=== PATIENT | female | born 1940 | race Caucasian/White ===

== ENCOUNTER 2022-12-07 12:36 | Inpatient (IN) | payer MEDICARE, OTHER, SELFPAY ==
[2022-12-07] VITALS (29 sets, daily range): BP systolic 118–183; BP diastolic 69–106; PULSE 72–101; RESP 14–34; TEMP 36.4–36.6; O2SAT 94–98
--- NOTE | 2022-12-07 12:37 | CTR_ITS ---
PROCEDURE INFORMATION: Exam: CT Head Without Contrast Exam date and time: 12/07/2022 12:37 PM Age: 82 years old Clinical indication: Stroke-like symptoms; Other: Left sided weakness weakness; Additional info: Symptoms of acute stroke TECHNIQUE: Imaging protocol: Computed tomography of the head without contrast. Radiation optimization: All CT scans at this facility use at least one of these dose optimization techniques: automated exposure control; mA and/or kV adjustment per patient size (includes targeted exams where dose is matched to clinical indication); or iterative reconstruction. Other technique: STROKE PROTOCOL was implemented. REPORTING DATA: Count of CT and Cardiac NM exams in prior 12 months: This patient has received 0 known CTs and 0 known cardiac nuclear medicine studies in the 12 months prior to the current study. COMPARISON: No relevant prior studies available. RADIATION DOSE METRICS: Total DLP (mGy-cm): 1008.08 FINDINGS: Brain: Hypodensity posterior portion of right basal ganglia and right insula. Hypodensity right internal capsule and small amount central portion of right MCA territory (series 14, image 44). No mass or hemorrhage. No extra-axial fluid collection. Nonacute lacunar infarct right basal ganglia. Mild bilateral periventricular and subcortical white matter hypodensities are present compatible with small-vessel ischemic disease. Cerebral ventricles: No ventriculomegaly. Paranasal sinuses: Visualized sinuses are unremarkable. No fluid levels. Mastoid air cells: Visualized mastoid air cells are well aerated. Bones/joints: Unremarkable. No acute fracture. Soft tissues: Unremarkable. Vasculature: Dense right middle cerebral artery. Other findings: Mild volume loss. CT/CT head thrombolytic [id number] IMPRESSION: No acute intracranial abnormality. ASSESSMENT: Hypodensity in central portions of right middle cerebral artery territory with dense right middle cerebral artery concerning for acute ischemia. No hemorrhage. ASPECTS ([place] Stroke Program Early CT Score) is 6.
--- NOTE | 2022-12-07 12:37 | CTR_ITS ---
PROCEDURE INFORMATION: Exam: CTA Head With Contrast, Arteriography Exam date and time: 12/07/2022 12:41 PM Age: 82 years old Clinical indication: Patient HX: Left sided weakness; Additional info: CVA TECHNIQUE: Imaging protocol: Computed tomographic angiography of the head with contrast. Exam focused on the arteries. 3D rendering (Not supervised by radiologist): MIP and/or 3D reconstructed images were created by the technologist. Radiation optimization: All CT scans at this facility use at least one of these dose optimization techniques: automated exposure control; mA and/or kV adjustment per patient size (includes targeted exams where dose is matched to clinical indication); or iterative reconstruction. Contrast material: OMNI 350; Contrast volume: 100 ml; Contrast route: INTRAVENOUS (IV); REPORTING DATA: Count of CT and Cardiac NM exams in prior 12 months: This patient has received 0 known CTs and 0 known cardiac nuclear medicine studies in the 12 months prior to the current study. COMPARISON: CT head thrombolytic [id number] 12/07/2022 12:37 PM RADIATION DOSE METRICS: Total DLP (mGy-cm): 433.6 FINDINGS: ANTERIOR CIRCULATION: Right internal carotid artery: No flow is seen in the intracranial portion of the right internal carotid artery. At the ICA bifurcation there is visualization of the right A1, likely filling via the anterior communicating artery, segment but the right middle cerebral artery is not opacified. Distal right MCA branches are seen likely from pial collaterals. Both A2 segments are opacified. Left ICA and MCA are unremarkable. Right middle cerebral artery: See Right internal carotid artery finding. Right anterior cerebral artery: See Right internal carotid artery finding. Left internal carotid artery: See Right internal carotid artery finding. Left middle cerebral artery: No occlusion or significant stenosis. No aneurysm. Left anterior cerebral artery: No occlusion or significant stenosis. No aneurysm. POSTERIOR CIRCULATION: Right vertebral artery: No occlusion or significant stenosis. No aneurysm. Left vertebral artery: No occlusion or significant stenosis. No aneurysm. Basilar artery: Intracranially, both vertebral arteries and basilar artery are unremarkable. No definite right posterior communicating artery is seen. Left posterior communicating artery is patent. Right posterior cerebral artery: No occlusion or significant stenosis. No aneurysm. Left posterior cerebral artery: No occlusion or significant stenosis. No aneurysm. Brain: No definite mass, mass effect, or midline shift. Cerebral ventricles: No ventriculomegaly. Bones/joints: Unremarkable. No acute fracture. Soft tissues: Unremarkable. PROCEDURE INFORMATION: Exam: CTA Neck With Contrast Exam date and time: 12/07/2022 12:41 PM Age: 82 years old Clinical indication: Patient HX: Left sided weakness; Additional info: CVA TECHNIQUE: Imaging protocol: Computed tomographic angiography of the neck with contrast. 3D rendering (Not supervised by radiologist): MIP and/or 3D reconstructed images were created by the technologist. Radiation optimization: All CT scans at this facility use at least one of these dose optimization techniques: automated exposure control; mA and/or kV adjustment per patient size (includes targeted exams where dose is matched to clinical indication); or iterative reconstruction. Contrast material: OMNI 350; Contrast volume: 100 ml; Contrast route: INTRAVENOUS (IV); REPORTING DATA: Count of CT and Cardiac NM exams in prior 12 months: This patient has received 0 known CTs and 0 known cardiac nuclear medicine studies in the 12 months prior to the current study. COMPARISON: CT head thrombolytic [id number] 12/07/2022 12:37 PM RADIATION DOSE METRICS: Total DLP (mGy-cm): 433.6 FINDINGS: Right common carotid artery: No stenosis. No dissection or occlusion. Right internal carotid artery: The right internal carotid artery is occluded at the inferior C2 level. Right external carotid artery: No occlusion or stenosis of the origin. Left common carotid artery: Great vessel origins are unremarkable without significant stenosis. The left common carotid artery arises from the base of the innominate artery. Left internal carotid artery: No stenosis of the extracranial segment. No dissection or occlusion. Left external carotid artery: No occlusion or stenosis of the origin. Right vertebral artery: No stenosis. No dissection or occlusion. Left vertebral artery: No stenosis. No dissection or occlusion. Larynx: Asymmetry vocal cords with slight thickening on the right. Direct visualization is recommended. Thyroid: Multiple nodules in the thyroid gland, recommend nonurgent thyroid ultrasound. Lymph nodes: Mild prominence of lymph nodes in the mediastinum. Soft tissues: Normal. No significant soft tissue swelling. Bones/joints: Diffuse cervical spondylosis with reversal of cervical lordosis. Slight anterolisthesis at C3-C4. Diffuse facet arthropathy. Degenerative disc disease C4-C5, C5-C6, C6-C7. Small central disc protrusion at C7-T1 possibly producing mild canal stenosis. CT/CT angio headneck* [id number] IMPRESSION: No flow is seen in the intracranial portion of the right internal carotid artery. At the ICA bifurcation there is visualization of the right A1, likely filling via the anterior communicating artery, segment but the right middle cerebral artery is not opacified. Distal right MCA branches are seen likely from pial collaterals. Both A2 segments are opacified. Left ICA and MCA are unremarkable. IMPRESSION: 1. 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 2. Multiple nodules in the thyroid gland, recommend nonurgent thyroid ultrasound. 3. Asymmetry vocal cords with slight thickening on the right. Direct visualization is recommended. Findings discussed with Dr. Green at the time of initial brain CT interpretation. COMMENTS: Consistent with the [place] [employer]'s Incidental Findings Committee white paper (J Am Noe Radiol 2015): In patients aged 35 years and older with an incidental thyroid nodule equal to or greater than 1.[address], MRI or extrathyroidal US, further evaluation with dedicated thyroid US is recommended for patients with normal life expectancy and without comorbidities. For smaller nodules without suspicious features, no further evaluation or follow up is recommended. REFERENCES: NASCET CRITERIA. The degree of stenosis in the cervical segment of the internal carotid artery is based on NASCET criteria. Normal is no stenosis. Mild is less than 50% stenosis. Moderate is 50-69% stenosis. Severe is 70% to 99% stenosis. Total occlusion is no detectable patent lumen.
--- NOTE | 2022-12-07 12:37 | XRR_ITS ---
PROCEDURE INFORMATION: Exam: XR Chest Exam date and time: 12/07/2022 12:57 PM Age: 82 years old Clinical indication: Other: Left sided weakness; Additional info: CVA TECHNIQUE: Imaging protocol: Radiologic exam of the chest. Views: 1 view. COMPARISON: CT angio headneck* [id number] 12/07/2022 12:41 PM FINDINGS: Lungs: Minor subsegmental atelectasis in the left base. No infiltrate or edema. Pleural spaces: Unremarkable. No pleural effusion. No pneumothorax. Heart/Mediastinum: Unremarkable. No cardiomegaly. Vasculature: There is a tortuous aorta. Bones/joints: Unremarkable. XR/XR chest 1V portable [id number] IMPRESSION: Minor subsegmental atelectasis in the left base.
--- NOTE | 2022-12-07 12:38 | W.ED.GENADLT ---
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
[2022-12-07 12:44] LABS: Glucose Point of Care 115 mg/dL (70-110)
--- NOTE | 2022-12-07 12:51 | ECG_ITS ---
[facility] Test Date: 2022-12-07 Pat Name: Magaly Álvarez Department: Room: Gender: Female Community Health Nurse Supervisor: : 1940 Requested By: Gretel Green Order Number: [id number] Opal MD: Salas Santamaria M.D. Measurements Intervals [place] Rate: 91 P: 95 ID: [id number] QRS: 18 QRSD: 93 T: 14 QT: 363 QTc: 448 Interpretive Statements SINUS RHYTHM POSSIBLE RIGHT VENTRICULAR CONDUCTION DELAY [RSR (QR) IN V1/V2] NONSPECIFIC ST & T-WAVE ABNORMALITY No previous ECG available for comparison Electronically Signed On 12-07-2022 13:55:22 CDT by Salas Santamaria M.D. [email or web address]
[2022-12-07] MEDS: iohexol 350 mg/mL 500 mL Btl (per mL) IV (12:52)
--- NOTE | 2022-12-07 12:56 | W.ED.NEUROSD ---
HPI - Neuro Symptoms/Deficit General: Chief Complaint: Neuro Symptoms/Deficit Stated Complaint: LEFT FACIAL DROOP Time Seen by Provider: 12/07/22 12:37 Source: EMS Mode of arrival: EMS Limitations: altered mental status History of Present Illness: 82-year-old female who family states I talked her last yesterday at 4 PM per EMS family became concerned with the day here from this morning she usually calls them every morning she does live alone EMS was called they had found her at her home with left-sided paralysis left facial droop along with deviated gaze patient here is only able to mumble words not really answering questions Review of Systems General: Reports: ROS unobtainable due to mental status NIH stroke score NIHSS: Level Of Consciousness - 1a: 0 Level Of Consciousness Questions - 1b: Neither Correct Level Of Consciousness Commands - 1c: Both Correct Best Gaze - 2: Forced Deviation Visual Boateng - 3: No Visual Loss Facial Palsy - 4: Complete Paralysis Motor Arm Right - 5: No Drift Motor Arm Left - 5: No Movement Motor Leg Right - 6: No Drift Motor Leg Left - 6: No Movement Limb Ataxia - 7: Present In One Limb Sensory - 8: Severe To Total Loss Best Language - 9: Severe Aphasia Dysarthia - 10: Severe Dysarthia Extinction And Inattention - 11: 1 Score: Total Score: 23 Physical Exam Const: COMMON NORMALS: negative for patient oriented x3 GENERAL APPEARANCE: ill appearing HENMT: COMMON NORMALS: normocephalic and atraumatic HEAD & SCALP: normocephalic and atraumatic Eye: COMMON NORMALS: Equal, round and reactive pupils present PUPIL: Yes Equal, round and reactive pupils present Neck/C-Spine: COMMON NORMALS: full ROM and supple Chest: COMMONS NORMALS: normal inspection of the chest and normal palpation of entire chest wall Resp: COMMON NORMALS: normal respiratory effort, No retractions, No use of accessory muscles and clear to auscultation bilaterally AUSCULTATION: clear to auscultation bilaterally Cardio: COMMON NORMALS: regular rate, regular rhythm and No murmurs present (Cardio) RATE: regular rate RHYTHM: regular rhythm GI: COMMON NORMALS: Normal to inspection, nondistended, normoactive bowel sounds present, Soft to palpation, non-tender and no masses PALPATION: Yes Soft to palpation Extremity: COMMON NORMALS: normal to inspection and full ROM Neuro: COMMON NORMALS: negative for patient oriented x3 OTHER: Left-sided paralysis along with left-sided neglect Psych: COMMON NORMALS: mental status grossly normal, Normal thought process present and cooperative THOUGHT PROCESS: Normal thought process present Skin: COMMON NORMALS: no rashes or lesions noted and no wounds GENERAL SKIN EXAM: no rashes or lesions noted Course Vital Signs: Vital signs: Vital Signs Temperature 97.6 F 12/07/22 12:56 Pulse Rate 92 12/07/22 12:56 Blood Pressure 137/71 12/07/22 12:56 Pulse Oximetry 97 12/07/22 12:56 Oxygen Delivery Me thod Room Air 12/07/22 12:56 MDM - Neuro Symptoms/Deficit Medical Decision Making Patient presents here after stroke she has internal carotid occlusion likely causing the stroke. I spoke to neurology at [facility] I feel she is out of the window for any retrieval candidate. She is alert tPA window as well spoke to the hospitalist will admit here. Medical Records I reviewed the patient's medical records. Lab Data I reviewed the patient's lab results. 12/07/22 13:18 12/07/22 13:18 Radiology Impressions Chest X-Ray 12/07/22 12:37 IMPRESSION: Minor subsegmental atelectasis in the left base. Head CT 12/07/22 12:37 IMPRESSION: No acute intracranial abnormality. ASSESSMENT: Hypodensity in central portions of right middle cerebral artery territory with dense right middle cerebral artery concerning for acute ischemia. No hemorrhage. ASPECTS ([place] Stroke Program Early CT Score) is 6. ADDENDUM: 12/07/[address] Green on 12/07/2022 1:03 p.m. central standard time. Head/Neck CTA 12/07/22 12:37 IMPRESSION: No flow is seen in the intracranial portion of the right internal carotid artery. At the ICA bifurcation there is visualization of the right A1, likely filling via the anterior communicating artery, segment but the right middle cerebral artery is not opacified. Distal right MCA branches are seen likely from pial collaterals. Both A2 segments are opacified. Left ICA and MCA are unremarkable. IMPRESSION: 1. 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 2. Multiple nodules in the thyroid gland, recommend nonurgent thyroid ultrasound. 3. Asymmetry vocal cords with slight thickening on the right. Direct visualization is recommended. Findings discussed with Dr. Green at the time of initial brain CT interpretation. COMMENTS: Consistent with the [place] [employer]'s Incidental Findings Committee white paper (J Am Noe Radiol 2015): In patients aged 35 years and older with an incidental thyroid nodule equal to or greater than 1.[address], MRI or extrathyroidal US, further evaluation with dedicated thyroid US is recommended for patients with normal life expectancy and without comorbidities. For smaller nodules without suspicious features, no further evaluation or follow up is recommended. REFERENCES: NASCET CRITERIA. The degree of stenosis in the cervical segment of the internal carotid artery is based on NASCET criteria. Normal is no stenosis. Mild is less than 50% stenosis. Moderate is 50-69% stenosis. Severe is 70% to 99% stenosis. Total occlusion is no detectable patent lumen. Laboratory Results WBC 6.81 10^3/uL (3.29-11.43) 12/07/22 13:18 RBC 4.34 10^6/uL (3.85-5.65) 12/07/22 13:18 Hgb 13.10 g/dL (11.27-16.99) 12/07/22 13:18 Hct 39.5 % (36-47) 12/07/22 13:18 MCV 91.0 fl (85-98) 12/07/22 13:18 MCH 30.2 pg (27-33) 12/07/22 13:18 MCHC 33.2 g/dL (30-55) 12/07/22 13:18 RDW 13.3 % (12.1-15.1) 12/07/22 13:18 Plt Count 244 10^3/cmm (157-399) 12/07/22 13:18 MPV 10.7 fL (7.4-10.4) H 12/07/22 13:18 Neut % (Auto) 87.9 % 12/07/22 13:18 Lymph % (Auto) 8.8 % 12/07/22 13:18 Gonzales % (Auto) 2.6 % 12/07/22 13:18 Eos % (Auto) 0.0 % 12/07/22 13:18 Baso % (Auto) 0.3 % 12/07/22 13:18 Neut # (Auto) 5.98 10^3/uL (1.8-7.7) 12/07/22 13:18 Lymph # (Auto) 0.6 10^3/uL (0.8-4.8) L 12/07/22 13:18 Gonzales # (Auto) 0.2 10^3/uL (0.2-0.9) 12/07/22 13:18 Eos # (Auto) 0.0 10^3/uL (0.0-0.8) 12/07/22 13:18 Baso # (Auto) 0.0 10^3/uL (0.0-0.1) 12/07/22 13:18 Nucleated RBC % (auto) 0 % 12/07/22 13:18 Nucleated RBCs # 0.0 /100WBC 12/07/22 13:18 PT 13.80 SECONDS (12.1-14.9) 12/07/22 13:18 INR 1.03 (0.8-1.2) 12/07/22 13:18 APTT 24.1 SECONDS (23.9-36.7) 12/07/22 13:18 Sodium 139 mmol/L (136-145) 12/07/22 13:18 Potassium 3.5 mmol/L (3.5-5.1) 12/07/22 13:18 Chloride 103 mmol/L (98-107) 12/07/22 13:18 Carbon Dioxide 25 mmol/L (22-29) 12/07/22 13:18 Anion Gap 14.5 (5-19) 12/07/22 13:18 BUN 15 mg/dL (8-23) 12/07/22 13:18 Creatinine 0.6 mg/dL (0.5-0.9) 12/07/22 13:18 GFR Calculation Not Reportable 12/07/22 13:18 POC Glucose 115 mg/dL (70-110) H 12/07/22 12:40 Calculated Osmolality 290 mOsm/kg (285-295) 12/07/22 13:18 Calcium 9.7 mg/dL (8.5-10.5) 12/07/22 13:18 Total Bilirubin 0.4 mg/dL (0.15-1.2) 12/07/22 13:18 AST 15 U/L (0-32) 12/07/22 13:18 ALT 10 U/L (0-33) 12/07/22 13:18 Alkaline Phosphatase 45 U/L (35-105) 12/07/22 13:18 Total Protein 6.7 g/dL (6.6-8.7) 12/07/22 13:18 Albumin 4.3 g/dL (3.5-5.2) 12/07/22 13:18 Globulin 2.4 g/dL (1.3-4.6) 12/07/22 13:18 All radiology interpretation(s) finalized by discharge EKG Data EKG 1: I personally reviewed and interpreted this EKG as follows: EKG interpretation date: 12/07/22 EKG interpretation time: 12:51 Interpretation: nsr hr [address] or t wave abnormalities qrs 93 qtc 412 Discharge Plan Discharge Patient Disposition: Admitted As Inpatient Clinical Impression: Cerebrovascular accident Condition: Stable Prescriptions: No Action metoprolol tartrate 50 mg tablet 50 mg PO DAILY hydrochlorothiazide 25 mg tablet 25 mg PO DAILY fenofibrate 160 mg tablet 160 mg PO DAILY Coding Level of Care Code 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
[2022-12-07 13:39] LABS: Basophils % 0.3 %; Hematocrit 39.5 % (36-47); Lymphocytes # 0.6 10^3/uL (0.8-4.8); Lymphocytes % 8.8 %; Mean Corpuscular HGB Conc 33.2 g/dL (30-55); Mean Corpuscular Hemoglobin 30.2 pg (27-33); Mean Platelet Volume 10.7 fL (7.4-10.4); Monocytes # 0.2 10^3/uL (0.2-0.9); Monocytes % 2.6 %; Neutrophils # 5.98 10^3/uL (1.8-7.7); Neutrophils % 87.9 %; Nucleated Red Blood Cells % 0 %; Platelet Count 244 10^3/cmm (157-399); Red Blood Count 4.34 10^6/uL (3.85-5.65); Red Cell Distribution Width 13.3 % (12.1-15.1); White Blood Count 6.81 10^3/uL (3.29-11.43)
[2022-12-07 13:56] LABS: INR 1.03 (0.8-1.2)
[2022-12-07 13:57] LABS: Partial Thromboplastin Time 24.1 SECONDS (23.9-36.7)
--- NOTE | 2022-12-07 14:00 | PM.HP ---
Providers/Chief Complaint Chief Complaint: LEFT FACIAL DROOP History of Present Illness Magaly Álvarez is a 82 year old female with last well-known time 4 PM yesterday, present today with chief complaint of left-sided weakness and gaze preference. She has been diagnosed with major stroke in the ER NIH is around 11 she is not a tPA candidate as per neurologist at [facility]. She has been admitted for PT OT ST evaluation She has significant gaze preference and dysarthria, We can do nursing speech evaluation at bedside Side of bed alarm She is not a good historian Review of Systems General: Reports: ROS unobtainable due to medical condition Medications/Allergies Home Medications Medication Instructions Recorded Confirmed Last Taken Type fenofibrate 160 mg tablet 160 mg PO DAILY 12/07/22 12/07/22 Unknown History hydrochlorothiazide 25 mg tablet 25 mg PO DAILY 12/07/22 12/07/22 Unknown History metoprolol tartrate 50 mg tablet 50 mg PO DAILY 12/07/22 12/07/22 Unknown History Allergies Allergy/AdvReac Type Severity Reaction Status Date / Time meloxicam Allergy Unknown Verified 12/07/22 13:10 Vitals/I&O/Wt Last Vital Signs Temp 97.6 F 12/07/22 12:56 Pulse 92 12/07/22 12:56 BP 137/71 12/07/22 12:56 Pulse Ox 97 12/07/22 12:56 O2 Del Method Room Air 12/07/22 12:56 Weight last 48 hrs Weight 66.224 kg Physical Exam Narrative: Patient has right-sided gaze preference Left-sided neglect Left-sided weakness Left-sided facial droop Able to answer simple questions in yes or no Dysarthria Hypertensive Currently on room air Afebrile No signs meningitis Abdomen soft Looks dehydrated Data 12/07/22 13:18 12/07/22 13:18 A&P Assessment and plan (1) Cerebrovascular accident: Plan Rt Internal carotid artery clot noted Acute CVA PT/OT/ST Permissive hypertension Patient is not diabetic as per the family Check A1c level, Check echo B12 and TSH Thyroid nodules noted on CT scan TSH is low with high free T4 does not have typical thyroid storm symptoms N.p.o. for now Full code Check telemetry for irregular heart rhythm EKG showing sinus rhythm Patient taken from the [facility] Attestations Medical Necessity Statement*: More than 2 midnights anticipated Diagnoses Cerebrovascular accident I63.9
[2022-12-07 14:02] LABS: Alanine Aminotransferase 10 U/L (0-33); Albumin Level 4.3 g/dL (3.5-5.2); Alkaline Phosphatase 45 U/L (35-105); Anion Gap 14.5 (5-19); Aspartate Amino Transferase 15 U/L (0-32); Blood Urea Nitrogen 15 mg/dL (8-23); Calcium 9.7 mg/dL (8.5-10.5); Carbon Dioxide 25 mmol/L (22-29); Chloride 103 mmol/L (98-107); Globulin 2.4 g/dL (1.3-4.6); Glucose 119 mg/dL (65-115); Osmolality Calculated 290 mOsm/kg (285-295); Potassium 3.5 mmol/L (3.5-5.1); Sodium 139 mmol/L (136-145); Total Bilirubin 0.4 mg/dL (0.15-1.2); Total Protein 6.7 g/dL (6.6-8.7)
[2022-12-07 14:25] LABS: D Dimer 1.21 ug/mLFEU (0-0.59)
[2022-12-07] MEDS: aspirin 300 mg Supp PR (14:34)
[2022-12-07] MEDS: sodium chloride 0.9% 1,000 ML 999 ML IV (14:35)
--- NOTE | 2022-12-07 16:28 | USCV_ITS ---
Magaly Álvarez Age: 82 Gender: F : 1940 Exam Date: 12/07/2022 17:34 Ordering Phys: Stephon Marvin MD Technologist: Errol Dorantes Exam Location[place] [facility] [place] Indication: CVA BP: 142 / 106 HR: 95 Rhythm: Sinus Technical Quality: Adequate MEASUREMENTS (Male / Female) Normal Values 2D ECHO LVOT Diameter 2.0 cm LV Ejection Fraction MOD 2C 64.9 % LV Ejection Fraction 2C AL 68.5 % LA Diameter 4.6 cm LA Width 3.7 cm LA Height 5.7 cm RA Width 2.7 cm RA Height 4.0 cm Aorta at Sinotubular Diameter 2.0 cm IVC Diameter 2.0 cm M-MODE Aortic Annulus Diameter 2.6 cm LA Ao Ratio MM 1.9 MV E Point Septal Separation 0.4 cm DOPPLER AV Peak Velocity 146.7 cm/s LVOT Peak Velocity 115.0 cm/s AV Area Cont Eq vti 2.9 cm squared AV Area Cont Eq pk 2.5 cm squared MV Peak Velocity 114.0 cm/s MV Area PHT 15.7 cm squared Mitral E to A Ratio 0.5 MV E' Velocity 26.5 cm/s Mitral E to MV E' Ratio 6.0 Mitral E to LV E' Lateral Ratio 4.1 Mitral E to LV E' Septal Ratio 11.2 TR Peak Velocity 250.8 cm/s TR Peak Gradient 25.2 mmHg TR Mean Velocity 197.5 cm/s TR Mean Gradient 16.7 mmHg TR Velocity Time Integral 65.5 cm Right Atrial Pressure 3.0 mmHg Pulmonary Artery Systolic Pressu 28.2 mmHg PV Peak Velocity 102.0 cm/s RV Acceleration Time 0.1 s RV Ejection Time 0.3 s RV AcT/ET 0.4 FINDINGS Left Ventricle Left ventricle is normal in size. LV systolic function is normal with EF of 55 to 60%. No regional wall motion abnormalities are seen. Grade 1 diastolic dysfunction Right Ventricle Normal in size and function Right Atrium Normal in size Left Atrium Normal in size Mitral Valve Structurally normal mitral valve. Trace mitral regurgitation. Aortic Valve Structurally normal aortic valve. No significant stenosis or regurgitation. Tricuspid Valve Mild tricuspid regurgitation. Pulmonary artery systolic pressure is normal. Pulmonic Valve Not well-visualized Pericardium Normal Aorta Normal in size IVC Appears to be normal CONCLUSIONS LV systolic function is normal with EF of 55 to 60%. Grade 1 diastolic dysfunction. Trace mitral regurgitation Mild tricuspid regurgitation. No comparison studies are available Salas Santamaria MD (Electronically Signed) Final Date: 07 December 2022 20:40 S
[2022-12-07 17:23] LABS: Estmated Average Glucose 114; Hemoglobin A1C 5.6 % (4.0-6.0)
[2022-12-07] MEDS: sodium chloride 0.9% 1,000 ML 75 ML IV (17:25)
[2022-12-07 17:33] LABS: Thyroid Stimulating Hormone 0.01 uIU/mL (0.27-4.20); Vitamin B12 433 pg/mL (232-1245)
[2022-12-07 17:45] LABS: Glucose Point of Care 114 mg/dL (70-110)
[2022-12-07] MEDS: enoxaparin 40 mg/0.4 mL Syringe SUBCUT (17:58)
[2022-12-07 18:17] LABS: Free T4 Free Thyroxine 1.81 ng/dL (0.82-1.77)
[2022-12-07 21:25] LABS: Glucose Point of Care 102 mg/dL (70-110)
[2022-12-08] VITALS (10 sets, daily range): BP systolic 134–154; BP diastolic 62–79; PULSE 64–99; RESP 16–18; TEMP 36.2–37.6; O2SAT 93–99
[2022-12-08 03:32] LABS: Add Urine Microscopic? NO; Charge for UA Resulting for Rev
[2022-12-08 03:39] LABS: Bilirubin Urine Neg (Negative); Blood Urine Neg (Negative); Glucose Urine UA Norm (Normal); Ketones Urine 1+ (Negative); Leukocyte Esterase Urine Negative (Negative); Nitrate Urine Negative (Negative); Protein Urine Neg (Negative); Urine Appearance Clear (CLEAR); Urine Color Yellow (Yellow); Urobilinogen Urine Neg (Negative); pH Urine 5 (5-7)
[2022-12-08 03:48] LABS: Amphetamines Screen Urine Negative (Negative); Barbiturates Screen Urine Negative (Negative); Benzodiazepines Screen Urine Negative (Negative); Cocaine Screen Urine Negative (Negative); Opiate Screen Urine Negative (Negative); PCP Screen Urine Negative (Negative); THC Screen Urine Negative (Negative)
[2022-12-08 05:23] LABS: Magnesium 1.9 mg/dL (1.7-2.3); Phosphorus 2.9 mg/dL (2.5-4.5)
[2022-12-08 06:56] LABS: Glucose Point of Care 99 mg/dL (70-110)
[2022-12-08] MEDS: sodium chloride 0.9% 1,000 ML 75 ML IV ×2 (08:00→21:25)
--- NOTE | 2022-12-08 10:37 | PM.PN ---
Subjective Subjective: Abnormal thyroid level, however no signs of hyperthyroidism Patient is able to understand, not able to express She has not eaten since Thursday A lot is dependent on speech evaluation to decide on prognosis however family is okay with rehab/SNF placement for now patient is stating that she would not opt for feeding tube placement if that is needed Vitals/I&O/Wt Last Vital Signs Temp 98.3 F 12/08/22 07:38 Pulse 87 12/08/22 07:38 Resp 16 12/08/22 07:38 BP 134/62 12/08/22 07:38 Pulse Ox 99 12/08/22 07:38 O2 Del Method Nasal Cannula 12/08/22 08:00 O2 Flow Rate 2 12/07/22 20:53 12/07/22 12/08/22 12/08/22 22:59 06:59 14:59 Intake Total 1000 / 1000 1000 / 2000 Balance 1000 / 1000 1000 / 2000 Weight last 48 hrs Weight 66.224 kg Physical Exam Narrative: Awake and alert Left-sided dense hemiplegia Left-sided facial droop Expressive aphasia Able to comprehend and understand Able to follow commands Family is at the bedside Signs of dehydration present Hemodynamically stable Currently on room air Data 12/07/22 13:18 12/07/22 13:18 A&P Assessment and plan (1) Cerebrovascular accident: (2) Dysphagia: (3) Hemiplegia affecting left nondominant side: (4) Dehydration: (5) Ataxia: Plan Acute CVA Patient will need senior living placement PT OT ST Her prognosis dependent on her speech evaluation If she is not able to eat she does not want 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 diet Full code Echo reviewed B12 normal and A1c level, sinus rhythm low TSH, above normal treat for no sign of hypothyroidism I would not start antithyroid medications for now she does have thyroid nodules Attestations Medical Necessity Statement*: Continue medical management Diagnoses Cerebrovascular accident I63.9 Dysphagia R13.10 Hemiplegia affecting left nondominant side G81.94 Dehydration E86.0 Ataxia R27.0
[2022-12-08 11:21] LABS: Glucose Point of Care 107 mg/dL (70-110)
[2022-12-08 16:28] LABS: Glucose Point of Care 102 mg/dL (70-110)
[2022-12-08] MEDS: enoxaparin 40 mg/0.4 mL Syringe SUBCUT (16:28)
[2022-12-08 22:05] LABS: Glucose Point of Care 109 mg/dL (70-110)
[2022-12-09] VITALS (9 sets, daily range): BP systolic 153–172; BP diastolic 69–82; PULSE 52–92; RESP 16–19; TEMP 36.4–37.5; O2SAT 94–97
[2022-12-09 06:50] LABS: Glucose Point of Care 87 mg/dL (70-110)
[2022-12-09] MEDS: aspirin 81 mg EC Tablet PO (08:27)
[2022-12-09] MEDS: atorvastatin 40 mg Tablet PO (08:27)
[2022-12-09] MEDS: sennosides-docusate Tablet 1 TAB PO (08:27)
[2022-12-09] MEDS: clopidogrel 75 mg Tablet PO (08:27)
--- NOTE | 2022-12-09 10:32 | ECG_ITS ---
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 Measurements Intervals [place] Rate: 74 P: 81 SC: 164 QRS: -8 QRSD: 94 T: -7 QT: 399 QTc: 444 Interpretive Statements SINUS RHYTHM POSSIBLE RIGHT VENTRICULAR CONDUCTION DELAY [RSR (QR) IN V1/V2] MINIMAL ST DEPRESSION [0.025+ mV ST DEPRESSION] Compared to ECG 12/07/2022 12:51:14 ST (T wave) deviation now present T-wave abnormality no longer present Electronically Signed On 12-09-2022 12:55:48 CDT by Toya Maria M.D. [id number]
[2022-12-09] MEDS: sodium chloride 0.9% 1,000 ML 75 ML IV (11:09)
[2022-12-09 11:47] LABS: Glucose Point of Care 96 mg/dL (70-110)
--- NOTE | 2022-12-09 13:50 | PM.PN ---
Subjective Subjective: ON level 5 dyspghaia diet Tele showed bradycardia Vitals/I&O/Wt Last Vital Signs Temp 98.3 F 12/09/22 12:00 Pulse 92 12/09/22 12:00 Resp 16 12/09/22 12:00 BP 172/76 12/09/22 12:00 Pulse Ox 95 12/09/22 12:00 O2 Del Method Room Air 12/09/22 12:00 O2 Flow Rate 2 12/07/22 20:53 12/08/22 12/09/22 12/09/22 22:59 06:59 14:59 Intake Total 1000 / 1000 1000 / 1000 Balance 1000 / 1000 1000 / 1000 Physical Exam Narrative: Pt sleeping family at bedside NO new defecit s1s2 hr in 702 left sided weakness left facial droop Data 12/07/22 13:18 12/07/22 13:18 A&P Assessment and plan (1) Ataxia: (2) Dehydration: (3) Hemiplegia affecting left nondominant side: (4) Dysphagia: (5) Cerebrovascular accident: Plan CVA acute Continue PT/OT and ST Level 5 dysphgia diet Awaiting placement Attestations Medical Necessity Statement*: awaiting placement Diagnoses Ataxia R27.0 Dehydration E86.0 Hemiplegia affecting left nondominant side G81.94 Dysphagia R13.10 Cerebrovascular accident I63.9
[2022-12-09] MEDS: acetaminophen 500 mg Tablet PO (14:44)
[2022-12-09] MEDS: enoxaparin 40 mg/0.4 mL Syringe SUBCUT (16:23)
[2022-12-09 16:26] LABS: Glucose Point of Care 100 mg/dL (70-110)
[2022-12-09 18:32] LABS: SARS Covid-2 Antigen negative (Negative)
[2022-12-09 21:04] LABS: Glucose Point of Care 90 mg/dL (70-110)
[2022-12-10] VITALS: BP 155/85; PULSE 66; RESP 17; TEMP 36.8; O2SAT 98
[2022-12-10] MEDS: sodium chloride 0.9% 1,000 ML 75 ML IV (00:02)
[2022-12-10 03:27] VITALS: BP 164/80; PULSE 69; RESP 18; TEMP 36.9; O2SAT 97
[2022-12-10 03:48] LABS: Glucose Point of Care 100 mg/dL (70-110)
[2022-12-10 06:50] LABS: Glucose Point of Care 91 mg/dL (70-110)
[2022-12-10 07:52] VITALS: BP 149/84; PULSE 87; RESP 16; TEMP 36.5; O2SAT 96
[2022-12-10 08:17] VITALS: PULSE 84; RESP 16; O2SAT 95
[2022-12-10] MEDS: atorvastatin 40 mg Tablet PO (08:40)
[2022-12-10] MEDS: clopidogrel 75 mg Tablet PO (08:40)
[2022-12-10] MEDS: aspirin 81 mg EC Tablet PO (08:40)
[2022-12-10] MEDS: sennosides-docusate Tablet 1 TAB PO (08:40)
[2022-12-10] MEDS: acetaminophen 500 mg Tablet PO (08:40)
--- NOTE | 2022-12-10 10:17 | PM.DCS ---
Discharge Providers Date of Admission: 12/07/22 13:55 Date of Discharge: December 10, 2022 Attending Provider at Admission: Stephon Marvin MD Attending Provider at Discharge: Stephon Marvin MD Diagnoses at Discharge Discharge Diagnosis (1) Ataxia: Status: Acute (2) Dehydration: Status: Acute (3) Hemiplegia affecting left nondominant side: Status: Acute (4) Dysphagia: Status: Acute (5) Cerebrovascular accident: Status: Acute Reason for Visit Reason for Visit: LEFT FACIAL DROOP Hospital Course Hospital Course 82-year-old female who present to the hospital after sustaining acute CVA, she was not a candidate of tPA, she was managed conservatively, she was put on level 5 dysphagia diet, PT OT was requested, she has left-sided facial droop, expressive aphasia, dense left-sided hemiplegia for right internal carotid plaque and right MCA involvement, she will be discharged to [facility], she is using her right hand to eat level 5 dysphagia diet, she remained in sinus rhythm and showed bradycardia during her sleep no symptoms at all, she does not need a pacemaker, echo unremarkable. Hypercoagulable work-up negative, hemoglobin A1c 5.6. Physical Exam Narrative: Left-sided facial droop, left-sided NSTEMI plegia GCS 15 S1, S2 Hemodynamically stable Able to comprehend Discharge Data Studies Completed and Pending Completed Studies During Hospitalization Category Date Time Status CT angio headneck* [id number] Stat Cat Scan 12/07/22 12:[address] head thrombolytic [id number] Stat Cat Scan 12/07/22 12:37 Completed XR chest 1V portable [id number] Stat Exams 12/07/22 12:37 Completed CV. echo complete* [id number] Routine Ultrasound 12/07/22 16:28 Completed Pending at discharge Category Date Time Status PROTEIN C, ACTIVITY Routine Lab 12/08/22 14:27 Received PROTEIN S, ACTIVITY Routine Lab 12/08/22 14:27 Received Radiology Impressions Chest X-Ray 12/07/22 12:37 IMPRESSION: Minor subsegmental atelectasis in the left base. Head CT 12/07/22 12:37 IMPRESSION: No acute intracranial abnormality. ASSESSMENT: Hypodensity in central portions of right middle cerebral artery territory with dense right middle cerebral artery concerning for acute ischemia. No hemorrhage. ASPECTS ([place] Stroke Program Early CT Score) is 6. ADDENDUM: 12/07/[address] Green on 12/07/2022 1:03 p.m. central standard time. Head/Neck CTA 12/07/22 12:37 IMPRESSION: No flow is seen in the intracranial portion of the right internal carotid artery. At the ICA bifurcation there is visualization of the right A1, likely filling via the anterior communicating artery, segment but the right middle cerebral artery is not opacified. Distal right MCA branches are seen likely from pial collaterals. Both A2 segments are opacified. Left ICA and MCA are unremarkable. IMPRESSION: 1. 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 2. Multiple nodules in the thyroid gland, recommend nonurgent thyroid ultrasound. 3. Asymmetry vocal cords with slight thickening on the right. Direct visualization is recommended. Findings discussed with Dr. Green at the time of initial brain CT interpretation. COMMENTS: Consistent with the [place] [employer]'s Incidental Findings Committee white paper (J Am Noe Radiol 2015): In patients aged 35 years and older with an incidental thyroid nodule equal to or greater than 1.[address], MRI or extrathyroidal US, further evaluation with dedicated thyroid US is recommended for patients with normal life expectancy and without comorbidities. For smaller nodules without suspicious features, no further evaluation or follow up is recommended. REFERENCES: NASCET CRITERIA. The degree of stenosis in the cervical segment of the internal carotid artery is based on NASCET criteria. Normal is no stenosis. Mild is less than 50% stenosis. Moderate is 50-69% stenosis. Severe is 70% to 99% stenosis. Total occlusion is no detectable patent lumen. Laboratory Results WBC 6.81 10^3/uL (3.29-11.43) 12/07/22 13:18 RBC 4.34 10^6/uL (3.85-5.65) 12/07/22 13:18 Hgb 13.10 g/dL (11.27-16.99) 12/07/22 13:18 Hct 39.5 % (36-47) 12/07/22 13:18 MCV 91.0 fl (85-98) 12/07/22 13:18 MCH 30.2 pg (27-33) 12/07/22 13:18 MCHC 33.2 g/dL (30-55) 12/07/22 13:18 RDW 13.3 % (12.1-15.1) 12/07/22 13:18 Plt Count 244 10^3/cmm (157-399) 12/07/22 13:18 MPV 10.7 fL (7.4-10.4) H 12/07/22 13:18 Neut % (Auto) 87.9 % 12/07/22 13:18 Lymph % (Auto) 8.8 % 12/07/22 13:18 [place] % (Auto) 2.6 % 12/07/22 13:18 Eos % (Auto) 0.0 % 12/07/22 13:18 Baso % (Auto) 0.3 % 12/07/22 13:18 Neut # (Auto) 5.98 10^3/uL (1.8-7.7) 12/07/22 13:18 Lymph # (Auto) 0.6 10^3/uL (0.8-4.8) L 12/07/22 13:18 [place] # (Auto) 0.2 10^3/uL (0.2-0.9) 12/07/22 13:18 Eos # (Auto) 0.0 10^3/uL (0.0-0.8) 12/07/22 13:18 Baso # (Auto) 0.0 10^3/uL (0.0-0.1) 12/07/22 13:18 Nucleated RBC % (auto) 0 % 12/07/22 13:18 Nucleated RBCs # 0.0 /100WBC 12/07/22 13:18 PT 13.80 SECONDS (12.1-14.9) 12/07/22 13:18 INR 1.03 (0.8-1.2) 12/07/22 13:18 APTT 24.1 SECONDS (23.9-36.7) 12/07/22 13:18 D-Dimer 1.21 ug/mLFEU (0-0.59) H 12/07/22 13:18 Sodium 139 mmol/L (136-145) 12/07/22 13:18 Potassium 3.5 mmol/L (3.5-5.1) 12/07/22 13:18 Chloride 103 mmol/L (98-107) 12/07/22 13:18 Carbon Dioxide 25 mmol/L (22-29) 12/07/22 13:18 Anion Gap 14.5 (5-19) 12/07/22 13:18 BUN 15 mg/dL (8-23) 12/07/22 13:18 Creatinine 0.6 mg/dL (0.5-0.9) 12/07/22 13:18 GFR Calculation Not Reportable 12/07/22 13:18 Glucose 119 mg/dL (65-115) H 12/07/22 13:18 POC Glucose 91 mg/dL (70-110) 12/10/22 06:43 Estimat Average Glucose 114 12/07/22 13:18 Hemoglobin A1c 5.6 % (4.0-6.0) 12/07/22 13:18 Calculated Osmolality 290 mOsm/kg (285-295) 12/07/22 13:18 Calcium 9.7 mg/dL (8.5-10.5) 12/07/22 13:18 Phosphorus 2.9 mg/dL (2.5-4.5) 12/08/22 04:32 Magnesium 1.9 mg/dL (1.7-2.3) 12/08/22 04:32 Total Bilirubin 0.4 mg/dL (0.15-1.2) 12/07/22 13:18 AST 15 U/L (0-32) 12/07/22 13:18 ALT 10 U/L (0-33) 12/07/22 13:18 Alkaline Phosphatase 45 U/L (35-105) 12/07/22 13:18 C-Reactive Protein 6.0 mg/L (0.0-4.9) H 12/08/22 04:32 Total Protein 6.7 g/dL (6.6-8.7) 12/07/22 13:18 Albumin 4.3 g/dL (3.5-5.2) 12/07/22 13:18 Globulin 2.4 g/dL (1.3-4.6) 12/07/22 13:18 Vitamin B12 433 pg/mL (232-1245) 12/07/22 13:18 TSH 0.01 uIU/mL (0.27-4.20) L 12/07/22 13:18 Free T4 1.81 ng/dL (0.82-1.77) H 12/07/22 13:18 Urine Color Yellow (Yellow) 12/08/22 02:45 Urine Appearance Clear (CLEAR) 12/08/22 02:45 Urine pH 5 (5-7) 12/08/22 02:45 Ur Specific [place] 1.020 (1.005-1.030) 12/08/22 02:45 Urine Protein Neg (Negative) 12/08/22 02:45 Urine Glucose (UA) Norm (Normal) 12/08/22 02:45 Urine Ketones 1+ (Negative) H 12/08/22 02:45 Urine Blood Neg (Negative) 12/08/22 02:45 Urine Nitrate Negative (Negative) 12/08/22 02:45 Urine Bilirubin Neg (Negative) 12/08/22 02:45 Urine Urobilinogen Neg mg/dL (Negative) 12/08/22 02:45 Ur Leukocyte Esterase Negative (Negative) 12/08/22 02:45 Urine Opiates Screen Negative ng/mL (Negative) 12/08/22 02:45 Ur Barbiturates Screen Negative ng/mL (Negative) 12/08/22 02:45 Ur Phencyclidine Scrn Negative ng/mL (Negative) 12/08/22 02:45 Ur Amphetamines Screen Negative ng/mL (Negative) 12/08/22 02:45 U Benzodiazepines Scrn Negative ng/mL (Negative) 12/08/22 02:45 Urine Cocaine Screen Negative ng/mL (Negative) 12/08/22 02:45 U Marijuana (THC) Screen Negative ng/mL (Negative) 12/08/22 02:45 SARS-CoV-2 Ag (Rapid) negative (Negative) 12/09/22 17:54 Vitals Last Vital Signs Temp 97.7 F 12/10/22 07:52 Pulse 84 12/10/22 08:17 Resp 16 12/10/22 08:17 BP 149/84 12/10/22 07:52 Pulse Ox 95 12/10/22 08:17 O2 Del Method Room Air 12/10/22 08:17 O2 Flow Rate 2 12/07/22 20:53 Discharge Plan Discharge Patient Disposition: Xfer SNF Condition: Stable Prescriptions: New aspirin 81 mg Tablet,Delayed Release (Dr/Ec) 81 mg PO DAILY Qty: 90 0RF atorvastatin 40 mg Tablet 40 mg PO DAILY Qty: 90 0RF clopidogrel 75 mg Tablet 75 mg PO DAILY Qty: 20 0RF escitalopram oxalate 20 mg tablet 10 mg PO DAILY Qty: 60 0RF lisinopril 10 mg tablet 10 mg PO DAILY Qty: 60 0RF Discontinued metoprolol tartrate 50 mg tablet 50 mg PO DAILY hydrochlorothiazide 25 mg tablet 25 mg PO DAILY fenofibrate 160 mg tablet 160 mg PO DAILY Discharge Orders: Discharge Order (Routine); Ordered 12/10/22 Ordered By: Stephon Marvin Referrals: [facility] [Outside] Patient Instructions: Opioid Safety Discharge Attestations Time Spent in Discharge Care*: greater than 30 min Quality Metrics Clinical Quality Measures [ No reported AMI, CVA or VTE this stay] Coding Level of Care Code Acute Code for Chg Fwd Diagnoses Ataxia R27.0 Dehydration E86.0 Hemiplegia affecting left nondominant side G81.94 Dysphagia R13.10 Cerebrovascular accident I63.9
[2022-12-10 11:10] LABS: Glucose Point of Care 119 mg/dL (70-110)
[2022-12-10 11:26] VITALS: BP 163/76; PULSE 78; RESP 16; TEMP 36.4; O2SAT 93
--- NOTE | 2022-12-10 11:31 | PC.SOCIAL ---
Pg 2 IMM Explained to pt's family Pg 2 IMM. No questions voiced. Provided pt a copy. Initialed, dated, & timed a copy & placed in chart.
[2022-12-10 12:52] VITALS: BP 163/76; PULSE 78; RESP 16; TEMP 36.4; O2SAT 93
--- NOTE | 2022-12-10 12:53 | PC.NURSE ---
Discharge Note Patient discharged to [facility] via ambulance accompanied by Ambulance personnelle. 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 Mobile pharmacy medications and/or prescriptions provided. Belongings/home medications returned.
[2022-12-11 05:18] LABS: PROTEIN C, ACTIVITY 123 % normal (70-180)
[2022-12-11 20:50] LABS: PROTEIN S, ACTIVITY 81 % normal (60-140)
== END 2022-12-10 12:54 | disposition skilled nursing facility (03) | DRG 65 ==
LOC: ER 14:16 → MEDSURG 14:31
PROVIDERS: Admitting Provider Internal Medicine; Emergency Provider Emergency Medicine; Visit Provider Internal Medicine
DX: I63.231 Cerebral infarction due to unspecified occlusion or stenosis of right carotid arteries (principal); G81.94 Hemiplegia, unspecified affecting left nondominant side; R13.10 Dysphagia, unspecified; R29.810 Facial weakness; R47.01 Aphasia; R29.723 NIHSS score 23; E86.0 Dehydration; I10 Essential (primary) hypertension
CPT/HCPCS: 36415; 36416; 51702; 70450; 70496; 70498; 71045; 80053; 80306; 81003; 82607; 82962; 83036; 83735; 84100; 84439; 84443; 85025; 85303; 85306; 85378; 85610; 85730; 86140; 87426; 92507; 92523; 92526; 92610; 93005; 93306; 96372; 96374; 97110; 97161; 97167; 97530; 97535; 99291; J1650; J7030; Q9967

== ENCOUNTER 2022-12-21 19:37 | Inpatient (IN) | payer MEDICARE, OTHER, SELFPAY ==
[2022-12-21] VITALS (7 sets, daily range): BP systolic 63–95; BP diastolic 42–66; PULSE 126–186; RESP 17–34; TEMP 36.9; O2SAT 92–97; BMI 25.0
--- NOTE | 2022-12-21 19:47 | XRR_ITS ---
PROCEDURE INFORMATION: Exam: XR Chest Exam date and time: 12/21/2022 9:03 PM Age: 82 years old Clinical indication: Other: Tachycardia; Hypotensive; Additional info: Weakness TECHNIQUE: Imaging protocol: Radiologic exam of the chest. Views: 1 view. COMPARISON: CR (CHEST, ) 12/07/2022 12:57 PM FINDINGS: Lungs: No definite consolidation. Pleural spaces: Unremarkable. No pleural effusion. No pneumothorax. Heart/Mediastinum: Suboptimal positioning makes evaluation of the heart and lungs difficult. There is a rotational component on this frontal view of the chest. Vasculature: There is calcified plaque in the aortic arch. Bones/joints: There degenerative changes across the glenohumeral joints, right greater than left. XR/XR chest 1V portable [id number] IMPRESSION: Suboptimal positioning. No definite acute cardiopulmonary pathology.
--- NOTE | 2022-12-21 19:47 | CTR_ITS ---
PROCEDURE INFORMATION: Exam: CT Head Without Contrast Exam date and time: 12/21/2022 8:59 PM Age: 82 years old Clinical indication: Altered mental status/memory loss; Patient HX: From [facility]. Patient tachycardic up to 200 bpm with hypotension. History of CVA. ; Additional info: Weakness TECHNIQUE: Imaging protocol: Computed tomography of the head without contrast. Radiation optimization: All CT scans at this facility use at least one of these dose optimization techniques: automated exposure control; mA and/or kV adjustment per patient size (includes targeted exams where dose is matched to clinical indication); or iterative reconstruction. REPORTING DATA: Count of CT and Cardiac NM exams in prior 12 months: This patient has received 2 known CTs and 0 known cardiac nuclear medicine studies in the 12 months prior to the current study. COMPARISON: CT head thrombolytic [id number] 12/07/2022 12:37 PM RADIATION DOSE METRICS: Total DLP (mGy-cm): 1167.48 FINDINGS: Brain: Subacute appearing right MCA distribution infarct. This was seen in its acute phase on the prior CT scan from 12/07/2022. There is diffuse cerebral atrophy present, consistent with this patient's age. Periventricular and subcortical white matter low densities are present which at this age likely represent microvascular ischemic change. No evidence for acute intracranial hemorrhage. Cerebral ventricles: No ventriculomegaly. Paranasal sinuses: Visualized sinuses are unremarkable. No fluid levels. Mastoid air cells: Visualized mastoid air cells are well aerated. Bones/joints: Unremarkable. No acute fracture. Soft tissues: Unremarkable. CT/CT head wo con* [id number] IMPRESSION: Subacute right MCA distribution infarct. This was seen in its acute phase on the prior CT scan from 12/07/2022.
--- NOTE | 2022-12-21 19:48 | ECG_ITS ---
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 Measurements Intervals [place] Rate: 205 P: 0 ME: 0 QRS: 43 QRSD: 66 T: 120 QT: 191 QTc: 353 Interpretive Statements ATRIAL FIBRILLATION WITH RAPID VENTRICULAR RESPONSE NONSPECIFIC ST & T-WAVE ABNORMALITY CRITICAL TEST RESULT Compared to ECG 12/09/2022 12:01:05 T-wave abnormality now present Sinus rhythm no longer present ST (T wave) deviation no longer present Electronically Signed On 12-22-2022 23:11:33 CDT by Ari Kirkpatrick M.D. [id number]
--- NOTE | 2022-12-21 19:51 | ED_ITS ---
HPI - Weakness General: Chief complaint: Altered Mental Status Stated complaint: AMS Time Seen by Provider: 12/21/22 19:42 History of Present Illness: 82-year-old female brought to emergency room from a local skilled nursing with vague complaint of altered mental status. According to EMS patient was found to be unresponsive around 7 PM. 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 Upon present emergency room patient was found to be lethargic but able to wake up and follow some commands. She was found to have significantly high heart rate above 200. Patient denies any nausea, vomiting, chest pain or abdominal pain. Review of Systems General: Reports: ROS unobtainable due to medical condition PFSH ED PFSH: Medical History Ataxia Cerebrovascular accident Dehydration Dysphagia Hemiplegia affecting left nondominant side Physical Exam Const: EXAM LIMITATIONS: altered mental status and physical limitations GENERAL APPEARANCE: lethargic, ill appearing and diaphoretic; not in distress ORIENTATION/CONSCIOUSNESS: Yes lethargic Eye: GENERAL EYE: appearance normal, both eyes and all related structures Neck/C-Spine: COMMON NORMALS: full ROM, no lymphadenopathy, supple, no meningeal signs, no JVD, Thyroid normal and No carotid bruits THYROID: Thyroid normal Chest: COMMONS NORMALS: normal inspection of the chest, normal palpation of entire chest wall, normal inspection of the breasts and normal palpation of the breasts Breast/axilla inspection: Yes normal inspection of the breasts BREAST/AXILLA PALPATION: Yes normal palpation of the breasts Resp: COMMON NORMALS: percussion normal EFFORT & INSPECTION: Yes symmetric chest movement AUSCULTATION: diminished lung sounds PERCUSSION: percussion normal Cardio: COMMON NORMALS: no JVD, S1 normal heart sound present and S2 normal heart sound present PALPATION: normal PMI RATE: tachycardic (200) RHYTHM: abnormal rhythm irregularly irregular HEART SOUNDS: S1 normal heart sound present and S2 normal heart sound present BRUITS: Abdominal aortic bruit present GI: COMMON NORMALS: Normal to inspection, nondistended, normoactive bowel sounds present, Soft to palpation, non-tender, No hepatosplenomegaly present, no masses and no bruits PALPATION: Yes Soft to palpation and Yes No hepatosplenomegaly present Extremity: COMMON NORMALS: normal to inspection, full ROM, capillary refill normal, no joint enlargement, no clubbing, cyanosis or edema, no calf tenderness and no pedal edema Neuro: ROBBY COMA SCALE: document GCS findings Robby coma scale eye opening: To sound Robby coma scale verbal response: Confused Robby coma scale motor response: Normal flexion [place] coma scale total score: 11 SENSORIUM/ORIENTATION: Yes lethargic MENINGEAL SIGNS: Yes no meningeal signs CRANIAL NERVES: Yes CN normal except as noted (facial droops) MOTOR EXAM: Other motor observations present (Decrease strength left upper and left lower extremities from residual strok) PUPIL EXAM: Normal pupillary reactivity/response: right, left and bilateral OTHER: Patient with residual left-sided weakness/flaccid Procedures Central Line Placement Right Femoral: Time Out Performed: Yes Patient Placed on Monitor/Pulse Ox: Yes MD Prep: mask, gown, gloves and other Central Line Prep: Chlorhexidine scrub and sterile drapes applied Ultrasound Used for Placement: No Central Line Lumen Inserted: triple Post Procedure: sutured in place, good blood return, all ports aspirated, flushed, capped and sterile dressing applied Patient Tolerated Procedure: well Complications: air embolism, catheter tip embolism, lost guide wire and catheter malposition Course Consultations: Consultation #1: Discussed patient with hospitalist Consultation #2: Discussed patient with chiller technician on several occasions. Recommend starting digoxin IV. We discussed cardioversion but given the fact the patient just had recent stroke we went against cardioversion at this time. Vital Signs: Vital signs: Vital Signs Temperature 98.1 F 12/22/22 22:00 Pulse Rate 90 12/22/22 22:00 Respiratory Rate 19 H 12/22/22 22:00 Blood Pressure 106/64 12/22/22 22:00 Pulse Oximetry 94 12/22/22 22:00 Oxygen Delivery Me thod Nasal Cannula 12/22/22 22:00 Oxygen Flow Rate 4 12/22/22 22:00 MDM - Weakness Medical Decision Making Patient made comfortable emergency room patient extensive work-up with CBC, CMP, CT head chest x-ray blood culture. Patient was given IV antibiotics. Patient was given Cardizem drip and bolus. Patient was given IV digoxin. Patient was given multiple IV fluid boluses. Differential Diagnosis Likely acute myocardial infarction, anemia, hypoglycemia, hypothyroidism, rhabdomyolysis, sepsis and dehydration Lab Data 12/22/22 03:27 12/22/22 16:15 Radiology Impressions Chest X-Ray 12/21/22 19:47 IMPRESSION: Suboptimal positioning. No definite acute cardiopulmonary pathology. Head CT 12/21/22 19:47 IMPRESSION: Subacute right MCA distribution infarct. This was seen in its acute phase on the prior CT scan from 12/07/2022. KUB X-Ray 12/21/22 23:03 IMPRESSION: There is a right femoral vascular catheter projecting over the right pelvis. It is unclear whether this is arterial, venous or even intravascular. Laboratory Results WBC 25.62 10^3/uL (3.29-11.43) H 12/21/22 21: RBC 4.47 10^6/uL (3.85-5.65) 12/21/22 21: Hgb 13.40 g/dL (11.27-16.99) 12/21/22: Hct 44.1 % (36-47) 12/21/22: MCV 98.7 fl (85-98) H 12/21/22: MCH 30.0 pg (27-33) 12/21/22 21: MCHC 30.4 g/dL (30-55) 12/21/22 21: RDW 14.7 % (12.1-15.1) 12/21/22: Plt Count TNP 12/21/22: MPV 13.3 fL (7.4-10.4) H 12/21/22 21: Neut % (Auto) 89.5 % 12/21/22: Lymph % (Auto) 4.6 % 12/21/22: [place] % (Auto) 4.2 % 12/21/22 21: Eos % (Auto) 0.0 % 12/21/22: Baso % (Auto) 0.3 % 12/21/22: Neut # (Auto) 22.92 10^3/uL (1.8-7.7) H 12/21/22 21: Lymph # (Auto) 1.2 10^3/uL (0.8-4.8) 12/21/22 21: [place] # (Auto) 1.1 10^3/uL (0.2-0.9) H 12/21/22 21:28 Eos # (Auto) 0.0 10^3/uL (0.0-0.8) 12/21/22 21: Baso # (Auto) 0.1 10^3/uL (0.0-0.1) 12/21/22 21: Nucleated RBC % (auto) 0.5 % 12/21/22 21: Nucleated RBCs # 0.1 /100WBC 12/21/22: PT 19.80 SECONDS (12.1-14.9) H 12/21/22 21: INR 1.62 (0.8-1.2) H 12/21/22 21: APTT 28.1 SECONDS (23.9-36.7) 12/21/22 21: Sodium 156 mmol/L (136-145) H 12/21/22 21: Potassium 4.0 mmol/L (3.5-5.1) 12/21/22 21: Chloride 123 mmol/L (98-107) H 12/21/22 21: Carbon Dioxide 18 mmol/L (22-29) L 12/21/22 21: Anion Gap 19.0 (5-19) 12/21/22 21: BUN 85 mg/dL (8-23) H* D 12/21/22 21: Creatinine 1.7 mg/dL (0.5-0.9) H 12/21/22 21: GFR Calculation Not Reportable 12/21/22: Glucose 167 mg/dL (65-115) H 12/21/22 21: Calculated Osmolality 352 mOsm/kg (285-295) H 12/21/22 21:28 Lactic Acid 3.6 mmol/L (0.5-2.2) H 12/21/22 21: Lactic Acid (Sepsis) 2.1 mmol/L (0.5-2.2) 12/21/22 23: Calcium 9.1 mg/dL (8.5-10.5) 12/21/22 21: Magnesium 2.4 mg/dL (1.7-2.3) H 12/21/22 21: Total Bilirubin 0.7 mg/dL (0.15-1.2) 12/21/22 21: AST 77 U/L (0-32) H 12/21/22 21: ALT 85 U/L (0-33) H 12/21/22 21: Alkaline Phosphatase 78 U/L (35-105) 12/21/22 21: Troponin T Baseline 111 ng/L (0-10) H* 12/21/22 21: Troponin T 120 Minute 95.74 ng/L (0-10) H 12/21/22 23:19 Delta Troponin T -15.26 ABS# (0-10) L 12/21/22 23:19 Total Protein 5.4 g/dL (6.6-8.7) L 12/21/22: Albumin 3.0 g/dL (3.5-5.2) L 12/21/22: Globulin 2.4 g/dL (1.3-4.6) 12/21/22: Urine Color Brown (Yellow) A 12/21/22 22:00 Urine Appearance Cloudy (CLEAR) A 12/21/22 22:00 Urine pH 6.5 (5-7) 12/21/22 22:00 Ur Specific [place] 1.015 (1.005-1.030) 12/21/22 22:00 Urine Protein 3+ (Negative) H 12/21/22 22:00 Urine Glucose (UA) Norm (Normal) 12/21/22 22:00 Urine Ketones 1+ (Negative) H 12/21/22 22:00 Urine Blood 3+ (Negative) H 12/21/22 22:00 Urine Nitrate Negative (Negative) 12/21/22 22:00 Urine Bilirubin 1+ (Negative) H 12/21/22 22:00 Urine Urobilinogen 4 mg/dL (Negative) H 12/21/22 22:00 Ur Leukocyte Esterase 2+ (Negative) H 12/21/22 22:00 Urine RBC Too numerous to cnt /hpf (0-2) H 12/21/22 22:00 Urine WBC Too numerous to cnt /hpf (0-5) H 12/21/22 22:00 Ur Squamous Epith Cells 0-4 /hpf (0-5) H 12/21/22 22:00 Amorphous Sediment Not Reportable 12/21/22 22:00 Urine Bacteria 2+ /hpf (NONE) H 12/21/22 22:00 XR interpretation done by ED provider, pending radiology final review EKG Data EKG 1: Interpretation: Atrial fibrillation with RVR rate of 205. QT interval [address] and T wave changes. Critical Care Time Critical Care Time: Critical Care Time: Yes Total Critical Care Time: 50 Attestation: Time spent discussing patient with family time spent reviewing past medical hi story and records. Time spent reexamining patient on multiple occasion. Time spent reviewing labs x-ray and CT scan. Discharge Plan Discharge Patient Disposition: Admitted As Inpatient Admit Provider: Suma Reddy Clinical Impression: Altered mental status, Sepsis, Atrial fibrillation with RVR, Leukocytosis, Acute UTI Condition: Stable Coding Level of Care Code ED [employer] Operator for Caleb Chaves
[2022-12-21] MEDS: dilTIAZem 5 mg/mL SDV 5 mL 20 MG IVP (19:57)
[2022-12-21] MEDS: dilTIAZem 100 MG in sodium chloride 0.9% (add-van) 100 ML IV (20:18)
[2022-12-21] MEDS: dilTIAZem 5 mg/mL SDV 5 mL 10 MG IVP (20:20)
[2022-12-21] MEDS: sodium chloride 0.9% 1,000 ML 999 ML IV ×3 (20:21→22:52)
[2022-12-21 21:46] LABS: Basophils # 0.1 10^3/uL (0.0-0.1); Basophils % 0.3 %; Hematocrit 44.1 % (36-47); Lymphocytes # 1.2 10^3/uL (0.8-4.8); Lymphocytes % 4.6 %; Mean Corpuscular HGB Conc 30.4 g/dL (30-55); Mean Corpuscular Volume 98.7 fl (85-98); Mean Platelet Volume 13.3 fL (7.4-10.4); Monocytes # 1.1 10^3/uL (0.2-0.9); Monocytes % 4.2 %; Neutrophils # 22.92 10^3/uL (1.8-7.7); Neutrophils % 89.5 %; Nucleated Red Blood Cells # 0.1 /100WBC; Nucleated Red Blood Cells % 0.5 %; Red Blood Count 4.47 10^6/uL (3.85-5.65); Red Cell Distribution Width 14.7 % (12.1-15.1); White Blood Count 25.62 10^3/uL (3.29-11.43)
[2022-12-21 21:58] LABS: INR 1.62 (0.8-1.2)
[2022-12-21 21:59] LABS: Partial Thromboplastin Time 28.1 SECONDS (23.9-36.7)
[2022-12-21 22:07] LABS: Troponin(5th) Baseline 111 ng/L (0-10)
[2022-12-21 22:08] LABS: Alanine Aminotransferase 85 U/L (0-33); Alkaline Phosphatase 78 U/L (35-105); Aspartate Amino Transferase 77 U/L (0-32); Calcium 9.1 mg/dL (8.5-10.5); Carbon Dioxide 18 mmol/L (22-29); Chloride 123 mmol/L (98-107); Globulin 2.4 g/dL (1.3-4.6); Glucose 167 mg/dL (65-115); Magnesium 2.4 mg/dL (1.7-2.3); Osmolality Calculated 352 mOsm/kg (285-295); Sodium 156 mmol/L (136-145); Total Bilirubin 0.7 mg/dL (0.15-1.2); Total Protein 5.4 g/dL (6.6-8.7)
[2022-12-21 22:09] LABS: Lactic Sepsis W/Reflex 3.6 mmol/L (0.5-2.2)
[2022-12-21 22:11] LABS: Blood Urea Nitrogen 85 mg/dL (8-23)
[2022-12-21 22:22] LABS: Glucose Urine UA Norm (Normal); Protein Urine 3+ (Negative); Specific Gravity, Urine 1.015 (1.005-1.030); Urine Appearance Cloudy (CLEAR); Urine Color Brown (Yellow); pH Urine 6.5 (5-7)
[2022-12-21] MEDS: digoxin 250 mcg/ml INJ 2 mL IVP (22:22)
[2022-12-21 22:23] LABS: Add Urine Culture? Yes; Add Urine Microscopic? YES; Bacteria Urine 2+ /hpf; Bilirubin Urine 1+ (Negative); Blood Urine 3+ (Negative); Ketones Urine 1+ (Negative); Leukocyte Esterase Urine 2+ (Negative); Nitrate Urine Negative (Negative); RBC Urine TOO NUMEROUS TO CNT /hpf (0-2); Squamous Epithelial Cell Urine 0-4 /hpf (0-5); Urobilinogen Urine 4 mg/dL (Negative); WBC Urine TOO NUMEROUS TO CNT /hpf (0-5)
[2022-12-21 22:28] LABS: Slide Review Slide Review Perform
--- NOTE | 2022-12-21 23:03 | XRR_ITS ---
PROCEDURE INFORMATION: Exam: XR Abdomen Exam date and time: 12/21/2022 11:08 PM Age: 82 years old Clinical indication: Device placement; Vascular catheter; Patient HX: Check S/P RT femoral central line placement. TECHNIQUE: Imaging protocol: Radiologic exam of the abdomen. Views: Frontal supine view of the abdomen. 1 View. COMPARISON: CR (CHEST, ) 12/21/2022 9:03 PM FINDINGS: Tubes, catheters and devices: There is a right femoral vascular catheter projecting over the right pelvis. It is unclear whether this is arterial, venous or even intravascular. Gastrointestinal tract: Normal. No bowel dilation. Bones/joints: Unremarkable. XR/XR KUB portable [id number] IMPRESSION: There is a right femoral vascular catheter projecting over the right pelvis. It is unclear whether this is arterial, venous or even intravascular.
[2022-12-21 23:22] LABS: Reflex Lactate Order REFLEX LACTIC ORDERD
[2022-12-21] MEDS: piperacillin-tazobactam 4.5 GM in sodium chloride 0.9% (plus) 50 ML IV (23:22)
[2022-12-21] MEDS: vancomycin 1,000 MG in sodium chloride 0.9% 250 ML 250 MG IV (23:26)
[2022-12-22] VITALS (94 sets, daily range): BP systolic 72–157; BP diastolic 32–99; PULSE 63–169; RESP 18–29; TEMP 36.4–37.1; O2SAT 69–100; BMI 21.5
[2022-12-22 00:08] LABS: Lactic Acid level (Lactate) 2.1 mmol/L (0.5-2.2); Troponin 5 2HR 95.74 ng/L (0-10)
[2022-12-22] MEDS: digoxin 250 mcg/ml INJ 2 mL IVP (00:40)
--- NOTE | 2022-12-22 01:00 | PC.NURSE ---
Physician Communication Patient's HR remaining in the 140s with frequent periodic increases into the 180s with cardizem administering at the maximum rate and levophed increasing to maintain blood pressure MAP >65. Additionally, patient admitted with nova catheter in place [facility] with evidence of a UTI and a temperature of 96.4F orally. Dr. Reddy on unit; orders received to administer a 1L NS bolus once, place malcolm huggar on patient, and replace nova catheter. Furthermore, Dr. Reddy notified of open wounds on left thigh, sacrum, and left buttock. Order received to place optifoams on all open areas. See Wound assessment.
[2022-12-22] MEDS: sodium chloride 0.9% 1,000 ML 999 ML IV ×2 (01:01→03:32)
--- NOTE | 2022-12-22 01:22 | PM.HP ---
Providers/Chief Complaint Admitting Physician: Suma Reddy MD Chief Complaint: AMS History of Present Illness Magaly Thorne is a 82 year old female with history of atrial fibrillation, stroke 3 weeks ago was brought in by EMS from shelter for for altered mental status. She was found unresponsive at 7:00 last night. There is no history of fever cold cough shortness of breath chest pain bowel or urinary complaints. She was admitted to shelter 3 weeks ago and had an indwelling urinary catheter. Review of Systems Narrative: She is nonverbal but was able to comprehend and answer questions with a nod Medications/Allergies Home Medications Medication Instructions Recorded Confirmed Last Taken Type aspirin 81 mg tablet,delayed 81 mg PO DAILY #90 tabs 12/10/22 Unknown Rx release atorvastatin 40 mg tablet 40 mg PO DAILY #90 tabs 12/10/22 Unknown Rx clopidogrel 75 mg tablet 75 mg PO DAILY #20 tabs 12/10/22 Unknown Rx escitalopram oxalate 20 mg tablet 10 mg PO DAILY #60 tabs 12/10/22 Unknown Rx lisinopril 10 mg tablet 10 mg PO DAILY #60 tabs 12/10/22 Unknown Rx Allergies Allergy/AdvReac Type Severity Reaction Status Date / Time meloxicam Allergy Unknown Verified 12/07/22 13:10 PFSH Acute PFSH: Medical History Ataxia Cerebrovascular accident Dehydration Dysphagia Hemiplegia affecting left nondominant side Vitals/I&O/Wt Last Vital Signs Temp 98.4 F 12/21/22 19:39 Pulse 135 H 12/22/22 00:00 Resp 17 12/21/22 23:15 BP 84/62 12/22/22 00:00 Pulse Ox 95 12/21/22 23:45 O2 Del Method Nasal Cannula 12/21/22 20:06 O2 Flow Rate 3 12/21/22 20:06 12/21/22 12/21/22 12/22/22 14:59 22:59 06:59 Intake Total 25.654 / 2037.696 Balance .654 / 2037.696 Weight last 48 hrs Weight 72.575 kg Physical Exam Narrative: She is alert awake but nonverbal Chest clear to auscultation bilaterally Cardiovascular tachycardic irregular heart sounds no murmurs Abdomen soft nontender nondistended normal bowel sounds Extremities no edema noted bilaterally Neurological she has left hemiparesis with hemiplegia. Data 12/22/22 03:27 12/22/22 03:27 Micro: Microbiology 12/21/22 23:19 Blood Culture - Preliminary Blood SPECIMEN COLLECTED 12/21/22 21:28 Blood Culture - Preliminary Blood SPECIMEN COLLECTED CXR: Radiologist's impression: No acute pathology CT Head: Radiologist's impression: IMPRESSION: Subacute right MCA distribution infarct. This was seen in its acute phase on the prior CT scan from 12/07/2022. ? KUB: Radiologist's impression: There is a right femoral vascular catheter projecting over the right pelvis. It is unclear whether this is arterial, venous or even intravascular. EKG 1: My Interpretation: Atrial fibrillation with rapid ventricular rate at 205 A&P Assessment and plan (1) Altered mental status: (2) Sepsis: (3) Atrial fibrillation with RVR: (4) Acute UTI: Plan 82-year-old female with history of atrial fibrillation stroke left-sided hemiplegia with hemiparesis 3 weeks ago was brought in by EMS for altered mental status and an episode of unresponsiveness at the shelter. She was found to have WBC count of 25 INR 1.6 creatinine 1.7 lactate 3.6 UA consistent with UTI hypothermic and hypotensive likely secondary to severe sepsis secondary to UTI Cardiovascular hemodynamically unstable blood pressure 76/44 on Levophed 6mcg per minute On Cardizem drip at 15 mcg per minute for atrial fibrillation, still has A-fib with RVR in 140s Received 2 doses of IV digoxin 250 mcg but with no improvement in heart rate. will start on aamiodarone drip as per the protocol Follow-up cardiology in a.m. Will give fluid bolus normal saline 1 L prn Hold p.o. lisinopril Respiratory stable saturating 97% on 2 L nasal cannula Chest x-ray clear no signs of active infection Neurologic CT head negative for new stroke. We will continue aspirin Plavix and atorvastatin ID-severe sepsis secondary to UTI Will do IV vancomycin 1 g every 12 IV Zosyn 3.375 mg every 8 hours Change Remy catheter IV fluids normal saline at 75 mL/h Nephrology-acute renal failure with creatinine of 1.7 secondary to sepsis Continue IV fluids normal saline at 75 mill per hour Recheck labs in a.m. Diet n.p.o. for now Prophylaxis-GI prophylaxis with IV Pepcid 20 mg twice a day DVT prophylaxis with subcutaneous Lovenox 30 mg daily CODE STATUS she is DNR. Attestations Medical Necessity Statement*: She needs continued hospitalization for more than 2 days for urosepsis and treatment with IV fluids and IV antibiotics and vasopressor agents for hypertension Time Spent in Patient Care: 40 Coding Level of Care Code Critical Care >/= 30 minutes Diagnoses Altered mental status R41.82 Sepsis A41.9 Atrial fibrillation with RVR I48.91 Acute UTI N39.0 Time Spent (min) 40
[2022-12-22] MEDS: enoxaparin 30 mg/0.3 mL Syringe SUBCUT (02:44)
[2022-12-22] MEDS: famotidine 20 mg/2 mL INJ IVP ×2 (02:44→13:37)
[2022-12-22] MEDS: sodium chloride 0.9% 1,000 ML 75 ML IV (02:45)
--- NOTE | 2022-12-22 03:30 | PC.NURSE ---
HR/BP Patient's HR still remaining elevated in the 140-160s with periodic increases into the 180s with a blood pressure MAP ranging from 53-65 as cardizem administering at the maximum rate and levophed increasing. Dr. Reddy notified; orders received for 5 mg IVP metoprolol once as well as a 1 L NS bolus IV once. Bolus administered per MAY. Metoprolol contraindicated per BP. Dr. Reddy contacted again and order received to initiate amio gtt per protocol with bolus. See MAR for details.
[2022-12-22] MEDS: dilTIAZem 100 MG in sodium chloride 0.9% (add-van) 100 ML 15 MG IV (03:32)
[2022-12-22 04:54] LABS: NT Pro B Type Natriuretic Pept 1760 pg/mL (0-450)
[2022-12-22 05:45] LABS: Basophils # 0.1 10^3/uL (0.0-0.1); Basophils % 0.2 %; Hematocrit 44.7 % (36-47); Lymphocytes # 1.3 10^3/uL (0.8-4.8); Lymphocytes % 5.5 %; Mean Corpuscular Hemoglobin 29.8 pg (27-33); Mean Corpuscular Volume 99.3 fl (85-98); Monocytes # 0.3 10^3/uL (0.2-0.9); Monocytes % 1.4 %; Neutrophils # 22.44 10^3/uL (1.8-7.7); Neutrophils % 92.3 %; Nucleated Red Blood Cells # 0.1 /100WBC; Nucleated Red Blood Cells % 0.5 %; Platelet Count 109 10^3/cmm (157-399); Red Cell Distribution Width 14.7 % (12.1-15.1); White Blood Count 24.33 10^3/uL (3.29-11.43)
[2022-12-22] MEDS: piperacillin-tazobactam 3.375 GM in sodium chloride 0.9% (plus) 50 ML IV ×3 (05:46→21:08)
[2022-12-22 05:49] LABS: Chloride 122 mmol/L (98-107); Potassium 4.1 mmol/L (3.5-5.1); Sodium 154 mmol/L (136-145)
[2022-12-22 06:07] LABS: Alanine Aminotransferase 99 U/L (0-33); Alkaline Phosphatase 78 U/L (35-105); Anion Gap 21.1 (5-19); Aspartate Amino Transferase 99 U/L (0-32); Calcium 8.4 mg/dL (8.5-10.5); Carbon Dioxide 15 mmol/L (22-29); Glucose 213 mg/dL (65-115); Magnesium 2.2 mg/dL (1.7-2.3); Osmolality Calculated 351 mOsm/kg (285-295); Phosphorus 5.4 mg/dL (2.5-4.5); Total Bilirubin 1.2 mg/dL (0.15-1.2); Total Protein 5.1 g/dL (6.6-8.7)
[2022-12-22 06:10] LABS: Slide Review Slide Review Perform
[2022-12-22 06:11] LABS: Blood Urea Nitrogen 88 mg/dL (8-23)
[2022-12-22 06:30] LABS: Albumin Level 2.8 g/dL (3.5-5.2); Globulin 2.3 g/dL (1.3-4.6)
[2022-12-22] MEDS: norepinephrine 8 MG in dextrose 5 % 500 ML 76.2 MG IV ×2 (09:05→15:59)
[2022-12-22] MEDS: dilTIAZem 100 MG in sodium chloride 0.9% (add-van) 100 ML 12.5 MG IV (09:47)
[2022-12-22] MEDS: vancomycin 1,000 MG in sodium chloride 0.9% 250 ML 250 MG IV ×2 (12:02→23:10)
--- NOTE | 2022-12-22 12:12 | P.PN_ITS ---
Subjective Subjective: Admitted overnight. Seen with family at bedside. Patient is lethargic, opening eyes to verbal and physical stimulus. Denies any nausea, vomiting, headache. Able to communicate by nodding head. On admission was hypothermic but now body temperatures up to 97.5 with Shayne hugger. Mean artery pressure has maintained over 65 but currently on Levophed of 10 being weaned down, saturating appropriately on 3 L. Minimal urine output, Remy catheter in place. Blood work appreciated for white count elevated to 24.3, stable hemoglobin, CMP showing hypernatremia with sodium of 154, BUN of 88, creatinine of 1.5, bicarb of 15, AST/ALT of 99/99 Vitals/I&O/Wt Last Vital Signs Temp 97.5 F L 12/22/22 09:45 Pulse 95 12/22/22 10:00 Resp 24 H 12/22/22 10:00 BP 106/63 12/22/22 10:00 Pulse Ox 92 12/22/22 08:30 O2 Del Method Nasal Cannula 12/22/22 08:30 O2 Flow Rate 6 12/22/22 08:30 12/21/22 12/22/22 12/22/22 22:59 06:59 14:59 Intake Total 2798.471 / 4811.513 342.529 / 342.529 Output Total 210 / 210 Balance 2588.471 / 4601.513 342.529 / 342.529 Weight last 48 hrs Weight 62.46 kg Weight 72.575 kg Physical Exam Narrative: General: No acute distress, lethargic, chronically sick appearing, opening eyes and nodding her head to verbal stimulus HEENT: PERRLA, pupils bilaterally equal and reactive Chest: Normal vesicular breath sounds, no added sounds, equal good air entry bilaterally CVS: Irregularly irregular, no murmurs, no tachycardia, no gallops, no rubs Abdomen: Soft, nontender, no organomegaly, bowel sounds present Neuro: No focal deficits, facial deformity and peripheral weakness as residual from recent stroke. Urinary Catheter Management: Remy: Cath Placed During This Visit: yes Reason for Continuing Indwelling Catheter: Accurate Measurement of Urinary Output in Critically Ill Patients Urinary Catheter Date of Insertion: 12/22/22 Urinary Catheter Time of Insertion: 02:30 Data 12/22/22 03:27 12/22/22 03:27 Micro: Microbiology 12/21/22 23:19 Blood Culture - Preliminary Blood SPECIMEN COLLECTED 12/21/22 21:28 Blood Culture - Preliminary Blood SPECIMEN COLLECTED A&P Assessment and plan (1) Septic shock: (2) Altered mental status: (3) Acute UTI: (4) Acute hypernatremia: (5) Atrial fibrillation with RVR: (6) Acute kidney injury: (7) Uremia: (8) Decubitus ulcer: (9) High anion gap metabolic acidosis: Plan 82-year-old female with history of atrial fibrillation stroke left-sided hemiplegia with hemiparesis 3 weeks ago was brought in by EMS for altered mental status and an episode of unresponsiveness at the half-way. She was found to have WBC count of 25 INR 1.6 creatinine 1.7 lactate 3.6 UA consistent with UTI hypothermic and hypotensive likely secondary to severe sepsis secondary to UTI Septic shock: Most likely in setting of acute UTI. Chronic Remy in place which was exchanged on admission in the ER. Follow-up blood culture, urine culture. For now continue with vancomycin and Zosyn. Check MRSA swab. If MRSA swab is negative will discontinue vancomycin. Wean Levophed keeping mean artery pressure over 65. Patient already received 5 L of fluid bolus on admission. For now switch the IV fluid at 100 cc/h. Check stool studies for diarrhea. Decubitus ulcer: Most likely in setting of normal mobility. Frequent repositioning. Altered mental status: Most likely in setting of septic shock, acute kidney injury with uremia, hypernatremia along with recent stroke. For hypernatremia: Free water deficit of more than 3 L. Switch IV fluid to D5 NS at 100 cc/h. Repeat BMP in evening for sodium levels. Fluid as above for LYLE. Keep n.p.o. for now. We will continue to monitor. Acute kidney injury: Baseline creatinine most recently 0.6. Most likely in setting of dehydration and septic shock. Fluid as above. Check urine lites, urine creatinine. Monitor BMP daily. Medical reconciliation done for nephrotoxic drugs. -Gap metabolic acidosis: Most likely in setting of LYLE. Atrial fibrillation with rapid ventricular response: Stop Cardizem drip as patient is in septic shock. Continue with amiodarone drip. If needed will plan for digoxin load. Discussed in detail with patient's son/DPOA at bedside. Discussed about merits and demerits with anticoagulation for prevention of further stroke while patient being at high risk of hemorrhagic conversion. Son verbalized understanding and is okay with anticoagulation if needed. Low TSH: We will repeat TSH levels and confirm. Check free T3 and free T4. Will start medication accordingly. NPO. Famotidine for PUD prophylaxis Lovenox for DVT prophylaxis. Goals of care discussion: Discussed in detail with patient son and [id number] at bedside. DPOA paperwork available. DNR/DNI as per DPOA paperwork. Son will be the DPOA if needed. Patient recently denied and declined feeding tube placement. Attestations Medical Necessity Statement*: Requires further hospitalization for management of altered mental status in setting of septic shock secondary to UTI, altered mental status in setting of septic shock, hypernatremia, LYLE with uremia, atrial fibrillation with rapid ventricular response. Coding Level of Care Code Critical Care >/= 30 minutes Critical care time (in minutes): 80 The high probability of a clinically significant, sudden or life threatening deterioration, as referenced in this documentation, required my full and direct attention, intervention and personal management. The critical care time shown is in addition to time spent performing any reported separately billable procedures and includes the following: [x] Data and vital sign review and interpretation [x ] Patient assessment, examination and intervention [x] Medication orders and management [x] Patient/Family updates as able [x] Care Coordination and Document ation. Diagnoses Septic shock A41.9; R65.21 Altered mental status R41.82 Acute UTI N39.0 Acute hypernatremia E87.0 Atrial fibrillation with RVR I48.91 Acute kidney injury N17.9 Uremia N19 Decubitus ulcer L89.90 High anion gap metabolic acidosis E87.29
[2022-12-22] MEDS: dextrose 5%-sod chloride 0.9% 1,000 ML 100 ML IV ×2 (12:30→22:02)
[2022-12-22 12:40] LABS: Digoxin 1.6 ng/mL (0.6-1.2)
[2022-12-22 12:53] LABS: Free T4 Free Thyroxine 1.91 ng/dL (0.82-1.77); T3 Free 2.7 PG/ML (2.0-4.4); Thyroid Stimulating Hormone 0.01 uIU/mL (0.27-4.20)
[2022-12-22 14:34] LABS: Iron 34 ug/dL (37-145); Percent Saturation 25.3 % (20-50); Total Iron Binding Capacity 134 mcg/dl; Unsaturated Iron Binding 100 ug/dL (112-347)
[2022-12-22] MEDS: insulin lispro 100 unit/1 mL SUBCUT ×2 (15:51→20:34)
[2022-12-22 15:53] LABS: Glucose Point of Care 300 mg/dL (70-110)
[2022-12-22 17:21] LABS: Calcium 8.3 mg/dL (8.5-10.5); Carbon Dioxide 11 mmol/L (22-29); Chloride 118 mmol/L (98-107); Glucose 237 mg/dL (65-115); Osmolality Calculated 340 mOsm/kg (285-295); Sodium 148 mmol/L (136-145)
[2022-12-22 17:24] LABS: Anion Gap 22.9 (5-19); Potassium 3.9 mmol/L (3.5-5.1)
[2022-12-22 17:26] LABS: Blood Urea Nitrogen 86 mg/dL (8-23)
--- NOTE | 2022-12-22 18:37 | PC.NURSE ---
Dr. Chaney verbal orders via telephone, read back, perform Cheetah. Results of Cheetah: Fluid responsive SVI 59.1% CI2.3 Dr. Chaney notified and orders received for bolus D5NS 2L over 4hours.
[2022-12-22] MEDS: dextrose 5%-sod chloride 0.9% 1,000 ML 999 ML IV ×2 (18:52→20:02)
[2022-12-22 20:35] LABS: Glucose Point of Care 402 mg/dL (70-110)
[2022-12-22] MEDS: norepinephrine 8 MG in dextrose 5 % 500 ML 68.58 MG IV (23:47)
[2022-12-23] VITALS (97 sets, daily range): BP systolic 62–127; BP diastolic 36–91; PULSE 70–157; RESP 15–27; TEMP 36.9–37.4; O2SAT 71–98
[2022-12-23] MEDS: enoxaparin 30 mg/0.3 mL Syringe SUBCUT (01:22)
[2022-12-23] MEDS: famotidine 20 mg/2 mL INJ IVP (01:22)
[2022-12-23 02:53] LABS: Glucose Point of Care 262 mg/dL (70-110)
[2022-12-23] MEDS: insulin lispro 100 unit/1 mL SUBCUT ×2 (02:53→09:28)
[2022-12-23 04:57] LABS: Basophils # 0.2 10^3/uL (0.0-0.1); Basophils % 0.7 %; Lymphocytes % 3.6 %; Mean Corpuscular HGB Conc 29.5 g/dL (30-55); Mean Corpuscular Hemoglobin 29.9 pg (27-33); Mean Corpuscular Volume 101.3 fl (85-98); Monocytes # 0.3 10^3/uL (0.2-0.9); Monocytes % 1.2 %; Neutrophils # 25.09 10^3/uL (1.8-7.7); Neutrophils % 93.8 %; Nucleated Red Blood Cells # 0.2 /100WBC; Nucleated Red Blood Cells % 0.7 %; Platelet Count 110 10^3/cmm (157-399); Red Blood Count 3.75 10^6/uL (3.85-5.65); Red Cell Distribution Width 14.6 % (12.1-15.1); White Blood Count 26.73 10^3/uL (3.29-11.43)
[2022-12-23 05:15] LABS: Alanine Aminotransferase 75 U/L (0-33); Albumin Level 1.8 g/dL (3.5-5.2); Alkaline Phosphatase 64 U/L (35-105); Anion Gap 14.2 (5-19); Aspartate Amino Transferase 34 U/L (0-32); Blood Urea Nitrogen 75 mg/dL (8-23); Calcium 7.8 mg/dL (8.5-10.5); Carbon Dioxide 15 mmol/L (22-29); Chloride 122 mmol/L (98-107); Globulin 2.5 g/dL (1.3-4.6); Glucose 235 mg/dL (65-115); Osmolality Calculated 336 mOsm/kg (285-295); Phosphorus 3.2 mg/dL (2.5-4.5); Potassium 3.2 mmol/L (3.5-5.1); Sodium 148 mmol/L (136-145); Total Bilirubin 0.5 mg/dL (0.15-1.2); Total Protein 4.3 g/dL (6.6-8.7)
[2022-12-23] MEDS: piperacillin-tazobactam 3.375 GM in sodium chloride 0.9% (plus) 50 ML IV (05:17)
[2022-12-23 05:24] LABS: Chol HDL Ratio 2.38 mg/dL (0.0-4.40); Cholesterol 62 mg/dL (0-200); HDL Cholesterol 26 mg/dL (60-100); LDL Cholesterol Calculated 20 mg/dL (50-129); Magnesium 1.9 mg/dL (1.7-2.3); Triglycerides 78 mg/dL (0-150); VLDL Cholestrol Calculation 16 mg/dL (0-30)
[2022-12-23 05:39] LABS: Slide Review Slide Review Perform
[2022-12-23 05:47] LABS: Folate Level 14.4 ng/mL (4.8-37.3)
[2022-12-23] MEDS: dextrose 5%-sod chloride 0.9% 1,000 ML 100 ML IV (08:33)
[2022-12-23] MEDS: norepinephrine 8 MG in dextrose 5 % 500 ML 60.96 MG IV (08:34)
[2022-12-23 09:18] LABS: Glucose Point of Care 141 mg/dL (70-110)
--- NOTE | 2022-12-23 09:47 | USCV_ITS ---
Magaly Thorne Age: 82 Gender: F : 1940 Exam Date: 12/23/2022 10:05 Ordering Phys: Jan Chaney MD Technologist: Jarrod Perez Exam Location: [facility] [place] Indication: lt leg swelling PROCEDURES: The venous duplex Doppler examination of both lower extremities was performed in the standard fashion. The following venous structures were evaluated: common femoral vein, profunda vein, proximal portion of the greater saphenous vein, superficial femoral vein, and the popliteal vein. In addition, the posterior tibial and peroneal trunk were evaluated. FINDINGS: Echolucent area measuring 3.76 x 1.50 cm-possible Ov[place]o's cyst On the right side, the veins were found to be easily compressible to spontaneous blood flow. On the left side, echogenic material was noted in the lumen of the common femoral, femoral, popliteal, posterior tibial and peroneal veins. Faint Doppler flow signals were noted in these veins. CONCLUSIONS 1. Features of deep vein thrombosis involving the left common femoral, profundofemoral, superficial femoral, femoral, popliteal, posterior tibial and peroneal veins causing subtotal occlusion. 2. No evidence of DVT in the above right lower extremity 3. Possible O[place]o's cyst in the right left popliteal region measuring 3.76 x 1.50 cm. 4. No similar previous studies are available for comparison Dr Ari Kirkpatrick MD [facility] (Electronically Signed) Final Date: 23 December 2022 16:50 S
--- NOTE | 2022-12-23 09:51 | PC.NURSE ---
[id number] Dr. Chaney here, ask for rest of IV bag of D5NS to infuse at 500ml/hr for a bolus. Adjusted pump.
--- NOTE | 2022-12-23 09:54 | CT_ITS ---
WS: [id number] NONCONTRAST CT LEFT KNEE TECHNIQUE: Noncontrast CT LEFT knee with coronal and sagittal reformatted images. CLINICAL INFORMATION: Swollen,possible septic arthritis COMPARISON: None. DLP: 345.[address] scans at [facility] use at least one of these dose optimization techniques: automated e xposure control; mA and/or kV adjustment per patient size (includes targeted exams where dose is matc hed to clinical indication); or iterative reconstruction. FINDINGS: Osteopenia. 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 Hypertrophic patella. Small moderate sup rapatellar effusion. Lobulated popliteal cyst measuring 2.5 x 2.0 x 5.8 cm. Diffuse soft tissue edema. Recommend correlation for cellulitis. Mild skin thickening. No evidence of drainable abscess or fluid collection. No evidence of acute osteomyelitis. Hypertrophic change along the joint line. IMPRESSION: 1. Diffuse soft tissue edema likely due to cellulitis. Mild skin thickening. 2. No drainable abscess or fluid collection. 3. Moderate to advanced tricompartmental arthritis with osteopenia. 4. Small to moderate suprapatellar effusion. Lobulated popliteal cyst described above.
--- NOTE | 2022-12-23 10:23 | CT_ITS ---
WS: [id number] CT HEAD TECHNIQUE: Noncontrast CT of the head obtained from the skullbase to the vertex. CLINICAL INFORMATION: Stroke ams COMPARISON: 12/21/2022 DLP: 1121.[address] scans at [facility] use at least one of these dose optimization techniques: automated e xposure control; mA and/or kV adjustment per patient size (includes targeted exams where dose is matc hed to clinical indication); or iterative reconstruction. FINDINGS: No evidence of intracranial hemorrhage. Similar appearance to the subacute RIGHT MCA territory infarc t involving the RIGHT basal ganglia extending into the RIGHT anterior MCA territory involving the pos terior inferior RIGHT frontal lobe and anterior temporal lobes. Associated edema is unchanged compare d to previous. Minimal mass effect in the RIGHT lateral ventricle. No hydrocephalus. Paranasal sinuses and mastoid air cells are well aerated. .Normal visualized soft tissues. IMPRESSION: 1. No evidence of intracranial hemorrhage 2. Stable subacute RIGHT MCA territory infarct with mild mass effect on the RIGHT lateral ventricle. 3. No other suspicious findings.
--- NOTE | 2022-12-23 11:06 | PC.NURSE ---
[address] via bed with O2 and monitor and all iv pumps for CT of left knee and head. 1105 Back to room, reconnected to room monitor and O2.
[2022-12-23 11:08] LABS: Vancomycin Trough 23.3 ug/mL (10-15)
[2022-12-23] MEDS: dextrose 5% 1,000 ML 125 ML IV (11:47)
--- NOTE | 2022-12-23 11:53 | PC.NURSE ---
1150 Son ask to speak with Dr. Chaney, they spoke on the phone, Son ask to just give hospice care. Orders to stop IV pressors and antibiotics and Lovenox, continue IV of D5W at 100ml.
--- NOTE | 2022-12-23 12:25 | PC.NURSE ---
1200 Family ask that I wait until some family arrives before I turn off the pressors.
--- NOTE | 2022-12-23 12:53 | PC.NURSE ---
1245 Different family members at bedside now. Family is supposed to let me know when ready for me to turn pressors off.
--- NOTE | 2022-12-23 13:28 | PC.NURSE ---
1315 Additional family members arriving and at bedside now. Family had ask to continue to wait about stopping pressors until more family members arrive.
--- NOTE | 2022-12-23 14:09 | PC.NURSE ---
1400 Patient's son said all the family members are here now, it's ok to stop the IV meds including pressors. Stopped norephinepherine and Amniodaron drips. Family at bedside.
--- NOTE | 2022-12-23 15:10 | P.PN_ITS ---
Subjective Subjective: No acute events overnight. Patient has remained on high dose Levophed up to 18, heart rate has been running between 100-120 bpm, patient is less awake today. Not waking up to verbal or physical stimulus but moaning to painful stimulus. Patient's mean arterial pressure have maintained over 65 on high-dose Levophed. Blood work today shows persistent leukocytosis more than 26, hemoglobin of 11.2, platelet count ranging around 110, sodium level up to 148, potassium at 3.2, creatinine persistently 1.5 with BUN slightly improving to 75, found to have left lower limb swelling for which she had lower limb Dopplers consistent with extensive DVT, left lower limb CT was also ordered to rule out knee effusion with concerns for septic arthritis, CT head was ordered to rule out intracranial hemorrhage given worsening mentation today versus herniation. Patient continues to have poor urine output with documented urine output of around 750 cc in last 24 hours. Vitals/I&O/Wt Last Vital Signs Temp 98.4 F 12/23/22 11:45 Pulse 118 H 12/23/22 12:45 Resp 19 H 12/23/22 12:45 BP 111/77 12/23/22 12:45 Pulse Ox 97 12/23/22 12:45 O2 Del Method Nasal Cannula 12/23/22 06:00 O2 Flow Rate 4 12/23/22 06:00 12/23/22 12/23/22 12/23/22 06:59 14:59 22:59 Intake Total 699.762 / 5614.437 1919.763 / 1919.763 Output Total 600 / 750 450 / 450 Balance 99.762 / 4864.437 1469.763 / 1469.763 Weight last 48 hrs Weight 70.488 kg Weight 62.46 kg Weight 72.575 kg Physical Exam Narrative: General: No acute distress, lethargic, chronically sick appearing, moaning to painful stimulus, mantaining airway HEENT: PERRLA, pupils bilaterally equal and reactive Chest: Normal vesicular breath sounds, no added sounds, equal good air entry bilaterally CVS: Irregularly irregular, no murmurs, no tachycardia, no gallops, no rubs Abdomen: Soft, nontender, no organomegaly, bowel sounds present Neuro: No focal deficits, facial deformity and peripheral weakness as residual from recent stroke. Urinary Catheter Management: Remy: Cath Placed During This Visit: yes Reason for Continuing Indwelling Catheter: Accurate Measurement of Urinary Output in Critically Ill Patients Urinary Catheter Date of Insertion: 12/22/22 Urinary Catheter Time of Insertion: 02:30 Data 12/23/22 03:30 12/23/22 03:30 Micro: Microbiology 12/21/22 22:00 Urine Culture - Final Urine,Clean Catch 12/23/22 03:30 Blood Culture - Preliminary Blood SPECIMEN COLLECTED 12/23/22 03:30 Blood Culture - Preliminary Blood SPECIMEN COLLECTED 12/21/22 23:19 Blood Culture - Preliminary Blood NEGATIVE TO DATE 12/22/22 16:16 Stool Lactoferrin - Final Stool Occult Blood (FIT) - Final 12/21/22 21:28 Blood Culture - Preliminary Blood A&P Assessment and plan (1) Septic shock: (2) Altered mental status: (3) Acute UTI: (4) Acute hypernatremia: (5) Atrial fibrillation with RVR: (6) Acute kidney injury: (7) Uremia: (8) Decubitus ulcer: (9) High anion gap metabolic acidosis: (10) Gram-positive bacteremia: (11) Left leg DVT: (12) Goals of care, counseling/discussion: Plan 82-year-old female with history of atrial fibrillation stroke left-sided hemiplegia with hemiparesis 3 weeks ago was brought in by EMS for altered mental status and an episode of unresponsiveness at the residential. She was found to have WBC count of 25 INR 1.6 creatinine 1.7 lactate 3.6 UA consistent with UTI hypothermic and hypotensive likely secondary to severe sepsis secondary to UTI Septic shock: Most likely in setting of acute UTI. Chronic Remy in place which was exchanged on admission in the ER. Follow-up blood culture, urine culture. For now continue with vancomycin and Zosyn. Check MRSA swab. If MRSA swab is negative will discontinue vancomycin. Wean Levophed keeping mean artery pressure over 65. Patient already received 5 L of fluid bolus on admission. For now switch the IV fluid at 100 cc/h. Check stool studies for diarrhea. Decubitus ulcer: Most likely in setting of normal mobility. Frequent repositioning. Altered mental status: Most likely in setting of septic shock, acute kidney injury with uremia, hypernatremia along with recent stroke. For hypernatremia: Free water deficit of more than 3 L. Switch IV fluid to D5 NS at 100 cc/h. Repeat BMP in evening for sodium levels. Fluid as above for LYLE. Keep n.p.o. for now. We will continue to monitor. Acute kidney injury: Baseline creatinine most recently 0.6. Most likely in setting of dehydration and septic shock. Fluid as above. Check urine lites, urine creatinine. Monitor BMP daily. Medical reconciliation done for nephrotoxic drugs. -Gap metabolic acidosis: Most likely in setting of LYLE. Atrial fibrillation with rapid ventricular response: Stop Cardizem drip as patient is in septic shock. Continue with amiodarone drip. If needed will plan for digoxin load. Discussed in detail with patient's son/DPOA at bedside. Discussed about merits and demerits with anticoagulation for prevention of further stroke while patient being at high risk of hemorrhagic conversion. Son verbalized understanding and is okay with anticoagulation if needed. Low TSH: We will repeat TSH levels and confirm. Check free T3 and free T4. Will start medication accordingly. NPO. Famotidine for PUD prophylaxis Lovenox for DVT prophylaxis. Goals of care discussion: Discussed in detail with patient son and [id number] at bedside. DPOA paperwork available. DNR/DNI as per DPOA paperwork. Son will be the DPOA if needed. Patient recently denied and declined feeding tube placement. Further goals of care discussion done with patient's son and family members at bedside today. We discussed unfortunately patient is still requiring high dose of Levophed along with high IV fluid resuscitation given extensive dehydration which is seen with elevated BUN, acute kidney injury and persistent hyponatremia which is resolving very slowly, discussed patient's worsening mentation today with possibility of need for CT head to rule out any intracranial hemorrhage, persistent leukocytosis with concerns for UTI, decubitus ulcer, positive blood cultures, further need of amiodarone drip for persistent atrial fibrillation with rapid ventricular response and extensive DVT of the left lower limb. We discussed patient most likely would need NG tube placement for further fluid resuscitation but not for nutrition as per her goals in the past. We discussed about management of all the above current medical ailment versus possible transition to hospice given patient's prior goals of care, extensive stroke which has led to her poor mobility leading to decubitus ulcer, poor oral intake which is led to dehydration and hypernatremia. We did discuss that we can most likely take care of the infection, septicemia and hypernatremia along with LYLE for now but given extensive stroke there is a high chance she would have hypernatremia again given suboptimal oral intake at baseline. After discussing further with her family members stated that patient always cared more about quality of life and would not be okay with current quality hence they would want to go ahead with hospice care. We did discuss hospice care would mean stopping the vasopressors and IV antibio tics which can mean her heart rate and blood pressures to drop and could even mean . Son verbalized understanding and wants to go ahead with hospice care. Case management has been informed. Care transition to hospice care. Plan: Stop Levophed, IV antibiotics. Will not treat with full dose Lovenox. Continue with IV fluids. No further labs. Vitals as per protocol. Attestations Medical Necessity Statement*: Requires further hospitalization for management of gram-positive bacteremia, septic shock, LYLE with uremia, hypernatremia, extensive left lower limb DVT in a patient with recent stroke while hospice care is set up Coding Level of Care Code Critical Care >/= 30 minutes Critical care time (in minutes): 80 The high probability of a clinically significant, sudden or life threatening det erioration, as referenced in this documentation, required my full and direct attention, intervention and personal management. The critical care time shown is in addition to time spent performing any reported separately billable procedures and includes the following: [x] Data and vital sign review and interpretation [x ] Patient assessment, examination and intervention [x] Medication orders and management [x] Patient/Family updates as able [x] Care Coordination and Documentation. Diagnoses Septic shock A41.9; R65.21 Altered mental status R41.82 Acute UTI N39.0 Acute hypernatremia E87.0 Atrial fibrillation with RVR I48.91 Acute kidney injury N17.9 Uremia N19 Decubitus ulcer L89.90 High anion gap metabolic acidosis E87.29 Gram-positive bacteremia R78.81 Left leg DVT I82.402 Goals of care, counseling/discussion Z71.89
--- NOTE | 2022-12-23 15:40 | PC.NURSE ---
1530 Several family members at bedside to be with patient. Comfort care.
[2022-12-23] MEDS: dextrose 5% 1,000 ML 100 ML IV (21:53)
--- NOTE | 2022-12-23 23:21 | PC.NURSE ---
Patient's family remains at bedside. Comfort care cart brought to room. Family requested to not do BG checks or insulin. patient remains on vitals and fluids. Oral care provided frequently.
[2022-12-24] VITALS (25 sets, daily range): BP systolic 56–82; BP diastolic 37–55; PULSE 123–165; RESP 14–20; O2SAT 88–98
[2022-12-24] MEDS: blistex lip oint 7 gm Tube 1 APPLIC TOPICAL (00:14)
[2022-12-24] MEDS: glycopyrrolate 0.2 mg/mL SDV 2 mL IV (02:09)
[2022-12-24] MEDS: morphine 4 mg/mL SDV 1 mL IVP ×4 (02:10→05:54)
--- NOTE | 2022-12-24 07:56 | PC.NURSE ---
TOOh Pt went asystole at 0656, family is at bedside, 60 second apical verified by nurse, family has signed body transfer form, family has chosen [facility] in [place]. [facility] has been notified and pt could be a donor. We will move pt to our cooled morgue.
--- NOTE | 2022-12-24 09:26 | PC.NURSE ---
MTS Pt is not a candidate for organ donation. [facility] notified.
--- NOTE | 2022-12-24 10:33 | PC.NURSE ---
home [facility] here to take pt. Copies of facesheet and release form given. Rep signed also.
--- NOTE | 2022-12-24 14:11 | P.DES_ITS ---
Discharge Providers DDS Date of Admission: 12/21/22 23:19 Date Summary Completed: 12/24/22 Attending Provider at Admission: Suma Reddy MD Attending Provider at Discharge: Jan Chaney MD DS Diagnoses Hospital Diagnoses (1) Septic shock: (2) Altered mental status: (3) Acute UTI: (4) Acute hypernatremia: (5) Atrial fibrillation with RVR: (6) Acute kidney injury: (7) Uremia: (8) Decubitus ulcer: (9) High anion gap metabolic acidosis: (10) Gram-positive bacteremia: (11) Left leg DVT: (12) Goals of care, counseling/discussion: Reason for Visit Reason for Visit AMS Summary Summary Summary: Magaly Thorne is a 82 year old female with history of atrial fibrillation, stroke 3 weeks ago was brought in by EMS from [facility] for for altered menta l status.? She was found unresponsive at 7:00 last night.? There is no history of fever cold cough shortness of breath chest pain bowel or urinary complaints.? She was admitted to [facility] 3 weeks ago and had an indwelling urinary catheter. Patient was admitted to the ICU for further evaluation and management of septic shock with concerns for UTI. She was started on broad-spectrum antibiotics. On admission patient was also found to be in atrial fibrillation with rapid ventricular response for which she was started on amiodarone drip. Patient was found to be severely dehydrated with hypernatremia, LYLE and uremia. Patient was treated with broad-spectrum antibiotics, treatment with IV fluids for management of free water deficit. Patient continued to remain hypotensive requiring high doses of vasopressors. Patient was also found to have a decubitus ulcer, swelling of her left lower limb which was consistent with extensive DVT. Extensive goals of care discussions were done with the family members regarding the need of possible NG tube placement for free water fluid deficit resolution, possible need for prolonged hospitalization. We discussed about management of all the above current medical ailment versus possible transition to hospice given patient's prior goals of care, extensive stroke which has led to her poor mobility leading to decubitus ulcer, poor oral intake which is led to dehydration and hypernatremia.? We did discuss that we can most likely take care of the infection, septicemia and hypernatremia along with LYLE for now but given extensive stroke there is a high chance she would have hypernatremia again given suboptimal oral intake at baseline. Family later decided to transition patient to hospice as per her prior goals of care. Patient today morning in comfortable state at 6:56 AM with family at bedside Additional Data Confirmation of as documented by pronouncing clinician: no pulse and no respirations Family: at bedside Additional persons at bedside: nursing staff Attending/PCP notified?: I am attending Was code activated?: No Autopsy requested?: No Advance directives?: Yes Hospice patient?: Yes Discharge Plan Discharge Patient Disposition: Condition: Stable Prescriptions: No Action atorvastatin 40 mg Tablet 40 mg PO DAILY Qty: 90 0RF clopidogrel 75 mg Tablet 75 mg PO DAILY Qty: 20 0RF aspirin 81 mg Tablet,Delayed Release (Dr/Ec) 81 mg PO DAILY Qty: 90 0RF lisinopril 10 mg tablet 10 mg PO DAILY Qty: 60 0RF acetaminophen 325 mg Tablet 650 mg PO QID PRN (Reason: Pain) Dulcolax (bisacodyl) 10 mg Suppository See Rx Instructions .ROUTE .COMPLEX PRN (Reason: Constipation) Rx Instructions: 10 mg rectally as needed if no bowel movement in 3 days. escitalopram oxalate 10 mg Tablet 10 mg PO QAM nitrofurantoin monohyd/m-cryst 100 mg capsule 100 mg PO BID Patient Instructions: Hyponatremia (ED), Benzodiazepine Use Disorder (ED), Dementia (ED), Non-diabetic Hypoglycemia (ED), Hypoglycemia in a Person with Diabetes (ED), Concussion (ED), Alcohol Intoxication (ED), Subarachnoid Hemorrhage (GEN), Altered Mental Status (ED), Opioid Safety Probable Cause of Probable cause of : Septic shock DS Attestations Time Spent in /Discharge Care*: greater than 30 min Quality - AMI: AMI present?: No Quality - Stroke: CVA present?: No Quality - VTE: VTE present?: Yes Coding Level of Care Code 83101 Total time (in minutes) for Discharge: 40 Diagnoses Septic shock A41.9; R65.21 Altered mental status R41.82 Acute UTI N39.0 Acute hypernatremia E87.0 Atrial fibrillation with RVR I48.91 Acute kidney injury N17.9 Uremia N19 Decubitus ulcer L89.90 High anion gap metabolic acidosis E87.29 Gram-positive bacteremia R78.81 Left leg DVT I82.402 Goals of care, counseling/discussion Z71.89
== END 2022-12-24 10:34 | disposition expired | DRG 871 ==
LOC: ER 23:14 → ICU 23:19
PROVIDERS: Admitting Provider Internal Medicine; Emergency Provider Family Medicine; Visit Provider Student in an Organized Health Care Education/Training Program
DX: A41.2 Sepsis due to unspecified staphylococcus (principal); R65.21 Severe sepsis with septic shock; N39.0 Urinary tract infection, site not specified; I69.954 Hemiplegia and hemiparesis following unspecified cerebrovascular disease affecting left non-dominant side; E87.0 Hyperosmolality and hypernatremia; N17.9 Acute kidney failure, unspecified; I82.412 Acute embolism and thrombosis of left femoral vein; I82.432 Acute embolism and thrombosis of left popliteal vein; I82.442 Acute embolism and thrombosis of left tibial vein; I82.452 Acute embolism and thrombosis of left peroneal vein; E87.20 Acidosis, unspecified; I48.91 Unspecified atrial fibrillation; E86.0 Dehydration; L89.322 Pressure ulcer of left buttock, stage 2; L89.311 Pressure ulcer of right buttock, stage 1; L89.152 Pressure ulcer of sacral region, stage 2; L89.42 Pressure ulcer of contiguous site of back, buttock and hip, stage 2; Z51.5 Encounter for palliative care; R68.0 Hypothermia, not associated with low environmental temperature; Z96.0 Presence of urogenital implants; R94.6 Abnormal results of thyroid function studies; Z66 Do not resuscitate
CPT/HCPCS: 36415; 36416; 36556; 36592; 51702; 70450; 71045; 73700; 74018; 80048; 80053; 80061; 80162; 80202; 81001; 82274; 82746; 82962; 83540; 83550; 83605; 83630; 83735; 83880; 84100; 84145; 84439; 84443; 84481; 84484; 85025; 85610; 85730; 87040; 87045; 87077; 87086; 87150; 87177; 87186; 87205; 87209; 87324; 87427; 87449; 93005; 93970; 96365; 96366; 96367; 96372; 96375; 96376; 99291; J0282; J1160; J1650; J1815; J2270; J2543; J3370; J3490; J7030; J7042; J7050; J7060; J7070